=== PATIENT | female | born 1955 | race Caucasian/White ===

== ENCOUNTER 2018-10-09 00:51 | Outpatient (CLI) | payer MEDICAID, SELFPAY ==
--- NOTE | 2018-10-09 12:00 | DI.MAMMO_ITS ---
SYMPTOM/DIAGNOSIS: SCREENING Z12.31 MAMMOGRAM: Mammograms were interpreted according to the usual protocol including computer analysis with CAD system, tomosynthesis and C view imaging. Comparison with prior examinations. Breast density B. Category 1. No suspicious masses or microcalcifications are seen. There is no definite evidence of malignancy. IMPRESSION: Negative mammogram. Routine screening is recommended. Category 1- B MQSA ASSESSMENT OF FINDINGS: Negative. Category 1. Patient will receive a letter notifying them of these results. bBI-RADS category B. There are scattered areas of fibroglandular density.
== END 2018-10-09 01:11 ==
PROVIDERS: PCP Family Medicine; Visit Provider Nurse Practitioner Family
DX: Z12.31 Encounter for screening mammogram for malignant neoplasm of breast (principal)
CPT/HCPCS: 77063; 77067

== ENCOUNTER 2019-10-01 16:07 | Outpatient (REF) | payer MEDICAID, SELFPAY ==
--- NOTE | 2019-10-01 15:30 | PAPFT_PTH ---
PATIENT: Ashleigh Mendoza LOC: [facility] U#:[id number] AGE/SX: 63/F ROOM: RE10/01/[address]: JUAN Benitez : 1955 BED: DIS: 10/01/2019 SPEC #: [id number] RECD: 10/01/19 18:17 STATUS: SHERINE REQ #: [id number] ELSA: 10/01/19 15:[address]: Alexandria Stafford DEPT: [facility] Cytology RECD BY: Luci Thorne ENTERED: 10/01/19 18:17 SP TYPE: PAPFT OTHR DR: Kristen Robles V Tissues: 1 - CX/ENDOCX FOR PAP SMEARS Procedures: PAP THIN PREP/UVM Screening HPV DNA PROBE Comments: [id number]
== END 2019-10-01 16:27 ==
LOC: LBN 16:07
PROVIDERS: PCP Family Medicine; Visit Provider Nurse Practitioner Family
DX: Z12.4 Encounter for screening for malignant neoplasm of cervix (principal)
CPT/HCPCS: 88142; 87624

== ENCOUNTER 2019-11-27 07:34 | Outpatient (CLI) | payer MEDICAID, SELFPAY ==
--- NOTE | 2019-11-27 | DI.MAMMO_ITS ---
EXAM: MAMMO SCREENING CLINICAL HISTORY: SCREENING, Z12.39 TECHNIQUE: Mammograms were interpreted according to the usual protocol including computer analysis w [employer] CAD system, tomosynthesis and C-view imaging. COMPARISON: 2010 through 2018 FINDINGS: The breasts are composed of scattered fibroglandular densities, Breast Density category B. No suspicious masses or suspicious microcalcifications are seen. A biopsy marker clip is again noted in the left breast. There are stable circumscribed nodules in the anterior left breast. No skin thickening or abnormal axillary lymph nodes are seen. There has been no significant change from prior exams. IMPRESSION: BI-RADS category 2, negative with benign findings. Yearly screening mammography is recommended. Breast density category B, scattered fibroglandular densities.
== END 2019-11-27 07:54 ==
PROVIDERS: PCP Family Medicine; Visit Provider Nurse Practitioner Family
DX: Z12.31 Encounter for screening mammogram for malignant neoplasm of breast (principal)
CPT/HCPCS: 77063; 77067

== ENCOUNTER 2020-12-15 00:31 | Outpatient (CLI) | payer MEDICAID, SELFPAY ==
--- NOTE | 2020-12-15 10:30 | DI.MAMMO_ITS ---
Exam(s) MAMMO SCREENING EXAM: MAMMO SCREENING CLINICAL HISTORY: screening. TECHNIQUE: Bilateral full field digital CC and MLO mammographic images were obtained with 3D tomosyn thesis and utilizing computer aided detection (CAD). COMPARISON: Prior mammograms dating back to 2011, the most recent being November 2019. This patient unde rwent left breast biopsy in 1007, apparently negative. Her mother and maternal aunt both diagnosed b reast cancer.. FINDINGS: There are bilateral nodules again noted. However, in the anterior right breast 1 of the nodules appears of slightly increased in size, measuri ng approximately 5 x 6 millimeters on the present study and located approximately 2.5 cm in from the nipple, slightly medial of center. Anteriorly in the opposite-left breast the previously present nodule slightly increased in size, pres ently measuring 9 x 6 millimeters, approximately 4 cm in from the nipple. There are no malignant-echo earing microcalcification groups in either breast. There is no significant architectural distortion nor skin thickening-retraction. IMPRESSION: Slight increase in size of left nodule and right nodule. Spot compression views plus bilateral breas t ultrasound recommended. BI-RADS Category 0 - Assessment Incomplete: Need additional imaging evaluation Breast Density - Category B - Scattered areas of fibroglandular density Breast density Category C or D implies that the patient has dense breast tissue. Dense breast tissue can make it harder to find cancer on a mammogram. Dense breast tissue is also associated with an incr eased risk of breast cancer. This information about the result of the mammogram report was provided to the patient to raise their awareness. Use this report when you speak with the patient about their risks for breast cancer, which includes their family history. At that time, you may recommend additional screening tests (Ultrasoun d or MRI) as these tests may add significant information. A negative radiographic report should not delay biopsy if a dominant or clinically suspicious mass is present. Up to ten percent of cancers are not identified on mammography. A negative report may reinforce clinical impression. Adenosis and dense breasts may obscure an underlying neoplasm. False positive reports average 6 to 10%. Patient will receive a letter notifying them of these results.
== END 2020-12-15 00:51 ==
PROVIDERS: PCP Family Medicine; Visit Provider Nurse Practitioner Family
DX: Z12.31 Encounter for screening mammogram for malignant neoplasm of breast (principal); R92.8 Other abnormal and inconclusive findings on diagnostic imaging of breast
CPT/HCPCS: 77063; 77067

== ENCOUNTER 2020-12-19 03:31 | Outpatient (CLI) | payer MEDICAID, SELFPAY ==
--- NOTE | 2020-12-19 | DI.MAMMO_ITS ---
Exam(s) US BREAST RT LIMITED US BREAST LT LIMITED MG MAMMO SCREEN CALL BACK BI EXAM: US BREAST RT LIMITED CLINICAL HISTORY: F/U MAMMO, BREAST NODULES,SLIGHT INCREASE IN SIZE OF NODULES TECHNIQUE: Ultrasound performed using standard protocol. COMPARISON: US LEFT BREAST ULTRASOUND from 04/26/2013 US US BREAST LT LIMITED from 12/19/2020 FINDINGS: Additional mammographic views of right and left breast and bilateral breast ultrasound are interprete d in conjunction. Recent mammogram showed mild interval increase in size of bilateral retroareolar n odules. On spot compression views these appear well circumscribed. Breast ultrasound shows 7 millim eter in diameter septated cyst of the right breast in approximately the 5 o'clock position, no Dopple r abnormality. Ultrasound examination of the left breast shows a well-circumscribed simple cyst jerome uring about 8 millimeters in greatest diameter. No Doppler abnormality. No solid mass identified ultrasonographically. IMPRESSION: Small bilateral breast cysts as described above. I would suggest follow-up mammogram be obtained 12 months. BI-RADS Cat 2 - Benign Findings Breast Density - Category B - Scattered areas of fibroglandular density DATA REPOSITORY:
== END 2020-12-19 03:51 ==
PROVIDERS: PCP Family Medicine; Visit Provider Nurse Practitioner Family
DX: Z12.31 Encounter for screening mammogram for malignant neoplasm of breast (principal); R92.8 Other abnormal and inconclusive findings on diagnostic imaging of breast; N60.01 Solitary cyst of right breast; N60.02 Solitary cyst of left breast
CPT/HCPCS: 76642; 77063; 77067

== ENCOUNTER 2021-03-18 14:59 | Outpatient (REF) | payer MEDICAID, SELFPAY ==
[2021-03-18 14:47] LABS: ALT 30 U/L (14-59); AST 20 U/L (15-37); Albumin 4.1 g/dL (3.4-5.0); Alkaline Phosphatase 95 U/L (46-116); Anion Gap 9.2 mmol/L (3-11); BUN 16 mg/dL (7-18); Bilirubin, Total 0.3 mg/dL (0.2-1.0); CO2 26.8 mmol/L (21.0-32.0); CREATININE 0.9 mg/dL (0.55-1.02); Calcium 10.6 mg/dL (8.5-10.1); Calculated LDL 112 mg/dL (<100); Chloride 105 mmol/L (98-107); Cholesterol 186 mg/dL (<200); Glucose 114 mg/dL (74-106); HDL Cholesterol 36 mg/dL (40-60); Potassium 4.8 mmol/L (3.5-5.1); Sodium 141 mmol/L (136-145); Total Protein 7.3 g/dL (6.4-8.2); Triglyceride 190 mg/dL (<150)
== END 2021-03-18 15:00 | disposition home or self-care (01) ==
LOC: NCHCN 14:59
PROVIDERS: PCP Family Medicine; Visit Provider Family Medicine
DX: E78.5 Hyperlipidemia, unspecified (principal); Z00.00 Encounter for general adult medical examination without abnormal findings
CPT/HCPCS: 80053; 80061

== ENCOUNTER 2021-03-26 15:23 | Outpatient (REF) | payer MEDICAID, SELFPAY ==
[2021-03-26 19:38] LABS: TSH (W/Ref FT4) 0.67 uIU/mL (0.36-3.74)
[2021-03-30 10:36] LABS: Parathyroid Hormone,Intact 118 pg/mL (19-88)
== END 2021-03-26 15:24 | disposition home or self-care (01) ==
LOC: NCHCN 15:23
PROVIDERS: PCP Family Medicine; Visit Provider Family Medicine
DX: Z00.00 Encounter for general adult medical examination without abnormal findings (principal)
CPT/HCPCS: 83036; 83970; 84443

== ENCOUNTER 2021-04-07 01:18 | Outpatient (CLI) | payer MEDICAID, SELFPAY ==
[2021-04-09 00:55] LABS: Vitamin D 25 Total 24.3 ng/mL (30-100)
== END 2021-04-07 01:19 | disposition home or self-care (01) ==
LOC: LBO 01:19
PROVIDERS: PCP Family Medicine; Visit Provider Family Medicine
DX: E83.52 Hypercalcemia (principal); E21.3 Hyperparathyroidism, unspecified
CPT/HCPCS: 36415; 82306

== ENCOUNTER 2021-04-10 19:26 | Outpatient (REF) | payer MEDICAID, SELFPAY ==
[2021-04-13 09:03] LABS: Calcium Urine 15.8 mg/dL (See Note); Calcium Urine 24 hr 332 mg/24hrs (100-300); Timed Urine Volume 2100 mL
== END 2021-04-10 19:27 | disposition home or self-care (01) ==
LOC: NCHCN 19:26
PROVIDERS: PCP Family Medicine; Visit Provider Family Medicine
DX: E83.52 Hypercalcemia (principal); E21.3 Hyperparathyroidism, unspecified
CPT/HCPCS: 81050; 82340

== ENCOUNTER 2021-09-10 12:15 | Outpatient (REF) | payer MEDICAID, SELFPAY ==
--- NOTE | 2021-09-10 10:00 | SKI_PTH ---
PATIENT: Ashleigh Mendoza LOC: [facility] U#:[id number] AGE/SX: 65/F ROOM: RE09/10/[address]: Kristen Robles V : 1955 BED: DIS: 09/10/2021 SPEC #: [id number] RECD: 09/10/21 12:43 STATUS: SHERINE BLAIR #: [id number] ELSA: 09/10/21 10:[address]: Kristen Robles V DEPT: Surgical Specimen RECD BY: Luci Thorne Tissues: 1 - SKIN BIOPSY(SHAVE/PUNCH) Procedures: SKIN LEVEL 4 Comments: [id number]
== END 2021-09-10 12:16 | disposition home or self-care (01) ==
LOC: NCHCN 12:15
PROVIDERS: PCP Family Medicine; Visit Provider Family Medicine
DX: L82.1 Other seborrheic keratosis (principal)
CPT/HCPCS: 88305

== ENCOUNTER 2021-10-28 00:24 | Outpatient (CLI) | payer MEDICAID, SELFPAY ==
--- NOTE | 2021-10-28 10:53 | DI.MAMMO_ITS ---
Exam(s) MAMMO DIAGNOSTIC BI EXAM: MAMMO DIAGNOSTIC BI CLINICAL HISTORY: DIAGNOSTIC, BREAST LESION, N64.9, FAMILY HX BREAST CA, NEW SCALE LIKE AREA. TECHNIQUE: Bilateral CC and MLO views were. Also performed right side unilateral spot mammographic images were obtained with 3D tomosynthesis technique and utilizing computer aided detection (CAD). COMPARISON: Prior mammograms were reviewed, the most recent being November 2020.. This is a diagnostic study. Apparently this patient has new skin findings in the right breast periar eolar region. Denies obvious nipple discharge. FINDINGS: In the left breast there is a benign-appearing nodule which is unchanged from prior mammograms. Ther e also appears to be a biopsy marker clip in the left breast with no new findings in this region. In the right breast there is a new small asymmetric density-nodule located anteriorly, approximately 3 cm in from the nipple, this measuring 3 x 2 millimeters. This was not evident on prior mammograms. It persists on spot compression CC view. Another slightly larger nodular density in the right loco st is unchanged from prior studies. There are no new malignant-appearing microcalcification groups in either breast. No new architectura l distortion or skin thickening-traction. IMPRESSION: 1. No radiographic evidence of malignancy in left breast. Stable benign-appearing left breast findin gs. 2. Small new asymmetric density-possible nodule in the right breast as described above. This persist s on spot compression view. Ultrasound recommended. Ultrasound is also recommended given her new cl inical findings in the right breast. Apparently there are no slots available for this add on ultrasound examination today. Patient will b e scheduled prior to leaving our department. Final report will be dictated once the ultrasound has been performed. The patient was informed of the findings and follow-up recommendations prior to leaving the departmen t today. BI-RADS Category 0 - Assessment Incomplete: Need additional imaging evaluation Breast Density - Category B - Scattered areas of fibroglandular density Breast density Category C or D implies that the patient has dense breast tissue. Dense breast tissue can make it harder to find cancer on a mammogram. Dense breast tissue is also associated with an incr eased risk of breast cancer. This information about the result of the mammogram report was provided to the patient to raise their awareness. Use this report when you speak with the patient about their risks for breast cancer, which includes their family history. At that time, you may recommend additional screening tests (Ultrasoun d or MRI) as these tests may add significant information. A negative radiographic report should not delay biopsy if a dominant or clinically suspicious mass is present. Up to ten percent of cancers are not identified on mammography. A negative report may reinforce clinical impression. Adenosis and dense breasts may obscure an underlying neoplasm. False positive reports average 6 to 10%. Patient will receive a letter notifying them of these results.
== END 2021-10-28 00:44 ==
PROVIDERS: PCP Family Medicine; Visit Provider Nurse Practitioner Family
DX: N64.89 Other specified disorders of breast (principal); Z80.3 Family history of malignant neoplasm of breast; N60.82 Other benign mammary dysplasias of left breast; N63.15 Unspecified lump in the right breast, overlapping quadrants; R92.8 Other abnormal and inconclusive findings on diagnostic imaging of breast
CPT/HCPCS: 77062; 77066; G0279

== ENCOUNTER → 2021-10-29 00:32 | Outpatient (CLI) | payer MEDICAID, SELFPAY ==
--- NOTE | 2021-10-29 | DI.US_ITS ---
Exam(s) US BREAST RT LIMITED EXAM: US BREAST RT LIMITED CLINICAL HISTORY: F/U MAMMO,R93.8 TECHNIQUE: Ultrasound right breast performed using standard protocol. COMPARISON: US US BREAST RT LIMITED from 12/19/2020 MG MG MAMMO DIAGNOSTIC BI from 10/28/2021 FINDINGS: The retroareolar region of the right breast was evaluated sonographically. There are few tiny cysts seen in the right breast. There is a cluster at 4 o'clock 1 cm from the nipple measuring in aggregat e 0.4 cm. There are few small cysts seen at the 12 o'clock position of the right breast 2 cm from th e nipple measuring 0.2 cm. No suspicious solid masses are seen. IMPRESSION: 1. No sonographically suspicious finding. 2. Findings were discussed with the patient on the date of the examination. 3. A six-month follow-up right mammogram is recommended for re-evaluation. BI-RADS Category 3 - 6 month - Probably Benign Finding: Recommend follow-up imaging in 6 months DATA REPOSITORY:
== END ==
PROVIDERS: PCP Family Medicine; Visit Provider Nurse Practitioner Family
DX: R92.8 Other abnormal and inconclusive findings on diagnostic imaging of breast (principal); N60.11 Diffuse cystic mastopathy of right breast
CPT/HCPCS: 76642

== ENCOUNTER 2021-11-17 12:21 | Outpatient (REF) | payer MEDICAID, SELFPAY ==
--- NOTE | 2021-11-17 11:42 | SKI_PTH ---
PATIENT: Ashleigh Mendoza LOC: [facility] U#:[id number] AGE/SX: 65/F ROOM: RE11/17/[address]: Kaylah Boone MD : 1955 BED: DIS: 11/17/2021 SPEC #: [id number] RECD: 11/17/21 12:58 STATUS: SHERINE BLAIR #: [id number] ELSA: 11/17/21 11:[address]: Kaylah Boone DEPT: Surgical Specimen RECD BY: Luci Thorne ENTERED: 11/17/21 12:59 SP TYPE: CARROL THEODORE DR: Kristen Robles V Tissues: 1 - SKIN BIOPSY(SHAVE/PUNCH) Procedures: SKIN LEVEL 4 SPECIAL STAIN 1 Comments: [id number]
== END 2021-11-17 12:22 | disposition home or self-care (01) ==
LOC: LBN 12:21
PROVIDERS: PCP Family Medicine; Visit Provider Surgery
DX: R21 Rash and other nonspecific skin eruption (principal); L98.8 Other specified disorders of the skin and subcutaneous tissue
CPT/HCPCS: 88305; 88312

== ENCOUNTER 2021-12-14 08:47 | Outpatient (REF) | payer MEDICAID, SELFPAY ==
--- NOTE | 2021-12-14 08:30 | PAPFT_PTH ---
PATIENT: Ashleigh Mendoza LOC: [facility] U#:[id number] AGE/SX: 66/F ROOM: RE12/14/[address]: JUAN Benitez : 1955 BED: DIS: 12/14/2021 SPEC #: [id number] RECD: 12/14/21 12:59 STATUS: SHERINE REQ #: [id number] ELSA: 12/14/21 08:[address]: Alexandria Stafford [facility] Cytology RECD BY: Luci Thorne ENTERED: 12/14/21 12:59 SP TYPE: PAPFT OTHR DR: Kristen Robles V Tissues: 1 - CX/ENDOCX FOR PAP SMEARS Procedures: PAP THIN PREP/UVM Screening HPV DNA PROBE Comments: [id number]
== END 2021-12-14 08:48 | disposition home or self-care (01) ==
LOC: LBN 08:47
PROVIDERS: PCP Family Medicine; Visit Provider Nurse Practitioner Family
DX: Z12.4 Encounter for screening for malignant neoplasm of cervix (principal)
CPT/HCPCS: 88142; 87624

== ENCOUNTER → 2021-12-25 | Outpatient (CLI) | payer MEDICAID, SELFPAY ==
--- NOTE | 2021-12-25 | DI.DEXA_ITS ---
Exam(s) XR DEXA BONE DENSITY W/WO RUT EXAM: XR DEXA BONE DENSITY W/WO RUT CLINICAL HISTORY: POST MENOPAUSAL Z78.0, SCREENING TECHNIQUE: COMPARISON: Comparison examination is 07/06/2016. FINDINGS: Lateral Spine Image: Unremarkable. No compression deformities identified. Left hip: Total T-Score: -0.1. This compares to 0.8 on the prior examination. This is a decrease in the bone m ineral density. Total Z-Score: 1.1 T- and Z-scores: Within normal limits. Lumbar Spine: Total T-Score: -0.7. This compares to 0.4 on the prior examination. This is a decrease in the bone m ineral density. Total Z-Score: 1.0 T- and Z-scores: Within normal limits. IMPRESSION: No evidence of osteoporosis.
== END ==
PROVIDERS: PCP Family Medicine; Visit Provider Family Medicine
DX: M85.88 Other specified disorders of bone density and structure, other site (principal); Z78.0 Asymptomatic menopausal state
CPT/HCPCS: 77080

== ENCOUNTER → 2021-12-29 00:25 | Outpatient (CLI) | payer MEDICAID, SELFPAY ==
--- NOTE | 2021-12-29 | DI.CTLCSR_ITS ---
Exam(s) CT CHEST LUNG CANCER SCREEN EXAM: CT CHEST LUNG CANCER SCREEN CLINICAL HISTORY: SMOKER, F17.210, LUNG CANCER SCREENING TECHNIQUE: Imaging Protocol: Axial computed tomography images with coronal and sagittal reformatted images were created and reviewed COMPARISON: No exams were available for comparison FINDINGS: Tracheobronchial tree: Patent where visualized. Mediastinum and Calista: No dominant adenopathy or fluid collection. Pulmonary parenchyma: No consolidation or dominant measurable mass. Moderate centrilobular emphysema . Lung Nodules: A few tiny scattered bilateral pulmonary nodules peripherally, measuring 3 millimeters or less in size. Pleura: No effusion or pneumothorax. Heart: The heart is not dilated. Moderate to severe coronary artery calcifications are seen. Aorta: Thoracic aorta non-dilated.Mild calcification. Upper abdomen: Unremarkable. Bones: Mild degenerative changes in the spine. Soft Tissues: Unremarkable. IMPRESSION: No suspicious pulmonary nodules Category Lung RADS Cat 2 - Benign Appearance / Behavior: Nodules with a very low likelihood of becomi ng a clinically active cancer due to size or lack of growth Lung-RADS 1.0 CATEGORIES: Category 0 - Prior chest CT exam(s) being located for comparison. Category 1 - Annual screening in 12 months. No nodules or definitely benign nodules. Category 2 - Annual screening in 12 months. Benign appearance. Nodules with low likelihood of becomin g active cancer. Category 3 - 6-month follow-up. Probably benign. Short-term follow-up suggested. Nodules with low lik elihood of becoming active cancer. Category 4A - 3-month follow-up and CT/PET if >8 mm in size. Suspicious finding. Findings which requi re additional testing. Category 4B - Findings which require additional testing and tissue sampling. Category 4X - Category 3 or 4 nodules with additional features or imaging findings that increases the suspicion of malignancy. Modifier S- Potentially clinically significant findings (non lung cancer) RADIATION DOSE DELIVERED: 78.01mGy.cm Total DLP 1.84mGy CTDIvol DATA REPOSITORY: All CT scans at this facility are submitted to the National Radiology Data Registry (NRDR) Dose Index Registry (DIR) with the [employer] (A[employer]). RADIATION OPTIMIZATION: All CT scans at this facility use at least one of these dose optimization te chniques: automated exposure control; mA and/or kV adjustment per patient size (includes targeted exa ms where dose is matched to clinical indication); or iterative reconstruction.
== END ==
PROVIDERS: PCP Family Medicine; Visit Provider Family Medicine
DX: F17.210 Nicotine dependence, cigarettes, uncomplicated (principal); Z12.2 Encounter for screening for malignant neoplasm of respiratory organs
CPT/HCPCS: 71271

== ENCOUNTER → 2022-01-21 01:19 | Outpatient (CLI) | payer MEDICAID, SELFPAY ==
--- NOTE | 2022-01-21 09:15 | DI.NM_ITS ---
APPROVED REPORT Exam: Exercise Treadmill Patient Location: Out-Patient Room/Bed: Stress Nurse: Asuncion Galeano RN Ordering Provider:MARGARET PEREZ, Contact Number: [phone] BMI: 28.66 Baseline Rhythm: Sinus Rhythm Indications: Chest pain. Current smoker. Family hx of CAD. CAD. Medical History Medical History: HTN. HLD. Current smoker. Hypercalcemia. Hyperparathyroidism. Thyroid nodules. Moder ate to severe coronary artery calcium. Cardiac Medications: Metoprolol Succinate. Gabapentin. Aspirin. Nitroglcerin. Rosuvastatin. Allergies: Amlodipine.Carosoprodol. Losartan. Simvastatin. Hydromorphone. Bupropion. Codeine w/ tylen ol. Cardiac Risk Factors: Family hx. CVD. HTN. Current smoker. HLD. Previous Cardiac Procedures: none Pretest Chest Pain Characteristics: None. Exercise History: Sedentary Physical Disabilities: None Lung Sounds: Clear to auscultation Heart Sounds: Regular Stress Test Details Test: Exercise stress testing was performed using a Karson protocol. Nuclear Acquisition: Rest Tc-99m/Stress Tc-99m 1 day Rest Isotope: Tc-99m Sestamibi. Dose: 10 Date: 01/21/2022 Injection Time: 0930 Stress Isotope: Tc-99m Sestamibi. Dose: 30.2 Date: 01/21/2022 Injection Time: 1132 HR Resting HR Supine: 83 bpm Max Heart Rate (APMHR): 156.557787 bpm Resting HR Standin bpm Target HR (85% APMHR): 132.264356 bpm Max HR Achieved: 150 bpm % of APMHR: 96.15 Recovery HR: 95 bpm HR response to stress: Normal HR response to stress Comment: Metoprolol succinate held for 3 doses. BP Resting BP Supine: 124/80 mmHg Resting BP Standin/80 mmHg Max BP: 190/66 mmHg Recovery BP: 150/74 mmHg BP response to stress: Normal blood pressure response to stress. ECG Resting ECG: Sinus Rhythm Ectopy: none Stress ECG: Sinus Tachycardia ST Change: Upsloping ST depression, Horizontal ST depression Lead(s): II, III, aVF Stage: [address] Deviation: 1 mm Arrhythmia: VPC's Recovery ECG: Sinus Rhythm Recovery ST Change: No significant ST segment changes noted Recovery Arrhythmia: VPC Comment: ST depressions resolved by 1 minute recovery. Clinical Reason for Termination: Fatigue, Dyspnea Stress Symptoms: Dyspnea, General Fatigue Exercise duration: 6 min43 sec Highest Stage Reached: Stage 3: 3.4 mph at 14% grade. Exercise capacity: 8.15 METs Scale: Sedentary Angina Score: None Myles Treadmill Score: 1.0 Rate Pressure Product: 14503 Stress ECG Conclusion 1. Resting electrocardiogram was within normal limits 2. Patient exercised on a Karson protocol and completed a workload of 8.15 METS 3. Normal heart rate and blood pressure response to exercise. Patient achieved 96% of predicted hear t rate for age 4. There was no electrocardiographic evidence of myocardial ischemia with exercise 5. There were no significant dysrhythmias Myles Treadmill Score is 1.0 which is Moderate risk. Stress Test Summary STAGE Time (mins) Speed (mph) Grade (%) HR BP SYMPTOMS METS Supine 83 124/80 Standing 94 136/80 1 3 1.7 10 117 152/72 SP02 93% 4.6 2 6 2.5 12 136 176/80 7 3 9 3.4 14 148 moderate dyspnea 10.2 1 min recovery 136 182/76 SP02 94% Dyspnea subsided 3 min recovery 103 190/66 6 min recovery 95 150/74 MPI Conclusion Myocardial perfusion is normal, no ischemia or evidence of prior infarction EF 61%, normal wall motion Radiologist Interpretation Radiologist Interpretation by: Lloyd Becerril MD Interpretation Date/Time: 01/21/2022 16:10:04
== END ==
PROVIDERS: PCP Family Medicine; Visit Provider Family Medicine
DX: R07.89 Other chest pain (principal)
CPT/HCPCS: 78452; 93017

== ENCOUNTER → 2022-02-08 00:35 | Outpatient (CLI) | payer MEDICAID, SELFPAY ==
--- NOTE | 2022-02-08 | DI.US_ITS ---
Exam(s) US THYROID EXAM: US THYROID CLINICAL HISTORY: MULTIPLE THYROID NODULES,E04.2,PARATHYROID ADENOMA,RT/LT LOWER POLE NODULES. TECHNIQUE: Ultrasound thyroid performed using standard protocol. COMPARISON: No exams were available for comparison FINDINGS: ISTHMUS: 4 mm RIGHT LOBE: Size: 5.9 x 1.6 x 1.8 cm Echogenicity: Normal. Vascularity: Normal. Nodules: #1 lower pole, solid, hypoechoic nodule with coarse macro calcifications measuring 1.5 x 1.0 x 1.5 cm, ill-defined borders, TR 4 #2: Lower pole, 1.3 x 0.9 x 1.1 centimeter solid hypoechoic nodule with ill-defined borders and coars e calcification, TR 4. LEFT LOBE: Size: 5.9 x 3.8 x 1.8 cm Echogenicity: Normal. Vascularity: Normal. Nodules: #3: Upper pole left lobe: 1.5 x 1.7 x 1.5 centimeter solid isoechoic nodule, taller than wid e, smoothly marginated no echogenic foci, TR 4. #4: Lower pole left lobe: 1.4 x 1.7 x 1.7 cm solid isoechoic nodule smooth margins no echogenic foci, TR 3 OTHER FINDINGS: No enlarged lymph nodes identified IMPRESSION: Bilateral thyroid nodules as above. DATA REPOSITORY:
== END ==
PROVIDERS: PCP Family Medicine; Visit Provider Nurse Practitioner Family
DX: E04.2 Nontoxic multinodular goiter (principal); D35.1 Benign neoplasm of parathyroid gland
CPT/HCPCS: 76536

== ENCOUNTER 2022-04-16 01:04 | Outpatient (CLI) | payer MEDICAID, SELFPAY ==
[2022-04-16 14:20] LABS: FREE T4 0.98 ng/dL (0.76-1.46); TSH 1.33 uIU/mL (0.36-3.74)
[2022-04-19 13:06] LABS: Parathyroid Hormone,Intact 105 pg/mL (19-88)
== END 2022-04-16 01:05 | disposition home or self-care (01) ==
LOC: LBO 01:04
PROVIDERS: PCP Family Medicine; Visit Provider Otolaryngology
DX: E04.1 Nontoxic single thyroid nodule (principal)
CPT/HCPCS: 36415; 82310; 83970; 84439; 84443

== ENCOUNTER 2022-04-30 01:32 | Outpatient (CLI) | payer MEDICAID, SELFPAY ==
[2022-04-30 08:16] LABS: ALT 34 U/L (14-59); AST 18 U/L (15-37); Alkaline Phosphatase 97 U/L (46-116); Anion Gap 4.9 mmol/L (3-11); BUN 17 mg/dL (7-18); Bilirubin, Total 0.3 mg/dL (0.2-1.0); CO2 30.1 mmol/L (21.0-32.0); CREATININE 0.9 mg/dL (0.55-1.02); Calcium 10.5 mg/dL (8.5-10.1); Calculated LDL 106 mg/dL (<100); Chloride 105 mmol/L (98-107); Cholesterol 191 mg/dL (<200); Estimated GFR 71.39 (mL/min/1.73m2); Glucose 125 mg/dL (74-106); HDL Cholesterol 38 mg/dL (40-60); Potassium 4.4 mmol/L (3.5-5.1); Sodium 140 mmol/L (136-145); TSH (W/Ref FT4) 1.11 uIU/mL (0.36-3.74); Total Protein 7.5 g/dL (6.4-8.2); Triglyceride 236 mg/dL (<150)
[2022-04-30 09:53] LABS: Hemoglobin A1C 6.1 % (<5.7)
== END 2022-04-30 01:33 | disposition home or self-care (01) ==
PROVIDERS: PCP Family Medicine; Visit Provider Family Medicine
DX: I10 Essential (primary) hypertension (principal); E04.2 Nontoxic multinodular goiter; R73.09 Other abnormal glucose; E78.5 Hyperlipidemia, unspecified; I25.10 Atherosclerotic heart disease of native coronary artery without angina pectoris; N64.89 Other specified disorders of breast
CPT/HCPCS: 36415; 80053; 80061; 83036; 84443

== ENCOUNTER → 2022-05-13 01:37 | Outpatient (CLI) | payer MEDICAID, SELFPAY ==
--- NOTE | 2022-05-13 09:30 | DI.MAMMO_ITS ---
Exam(s) MAMMO DIAGNOSTIC UNI EXAM: MAMMO DIAGNOSTIC UNI CLINICAL HISTORY: BREAST LESION, N64.9, 6-MO F/U TECHNIQUE: Mammograms were interpreted according to the usual protocol including computer analysis w ith CAD system, tomosynthesis and C-view imaging. COMPARISON: FINDINGS: The breasts are of moderate density with fairly symmetrical distribution of fibroglandular tissue. N o dominant mass or clumped microcalcification seen. Examination is compared with prior examination o f October 2021, a left breast upper outer quadrant nodule seen on prior examination is smaller on today 's examination. No other suspicious change. IMPRESSION: No specific evidence of malignancy at this time. Follow-up mammogram suggested in 12 months to re-ev aluate left breast nodule. BI-RADS Category 2 - Benign Findings Breast Density - Category B - Scattered areas of fibroglandular density
== END ==
PROVIDERS: PCP Family Medicine; Visit Provider Nurse Practitioner Family
DX: N63.21 Unspecified lump in the left breast, upper outer quadrant (principal)
CPT/HCPCS: 77061; 77065; G0279

== ENCOUNTER 2022-05-14 14:27 | Outpatient (REF) | payer MEDICAID, SELFPAY ==
[2022-05-16 10:23] LABS: COVID-19 RT-PCR UVMMC Result Negative (Negative)
== END 2022-05-14 14:28 | disposition home or self-care (01) ==
LOC: NCHCN 14:27
PROVIDERS: PCP Family Medicine; Visit Provider Physician Assistant Medical
DX: Z20.822 Contact with and (suspected) exposure to COVID-19 (principal)
CPT/HCPCS: U0003

== ENCOUNTER 2022-11-22 06:58 | Day surgery (SDC) | payer MEDICARE, MEDICAID, SELFPAY ==
--- NOTE | 2022-11-21 20:28 | PDOC.DSDIS_ITS ---
Date of service: 11/22/22 Time of Service: 09:04 Discharge Plan Disposition Patient Disposition: Home Condition: Good Discharge Details Reason For Visit: Screening colonoscopy Attending Provider: Serge Becerril Primary Care Provider: Kristen Robles V Home Meds and New Rx's Prescriptions: Continued ibuprofen 800 MG tablet 800 mg PO PRN aspirin [Aspir-81] 81 MG tablet,delayed release (DR/EC) 81 mg PO DAILY nitroglycerin 0.4 MG tablet, sublingual 0.4 mg Sublingual PRN rosuvastatin 10 mg tablet 10 mg PO DAILY cholecalciferol (vitamin D3) 50 mcg (2,000 unit) capsule 50 mcg PO DAILY gabapentin 100 mg capsule 200 mg PO BID metoprolol succinate 25 mg tablet extended release 24 hr 50 mg PO DAILY triamcinolone acetonide 0.1 % cream 1 applic topical BID Discontinued polyethylene glycol 3350 17 gram/dose powder 238 g PO ONCE Qty: 238 0RF Rx Instructions: take per colonoscopy instructions bisacodyl [Dulcolax (bisacodyl)] 5 mg tablet,delayed release (DR/EC) 5 mg PO ONCE Qty: 4 0RF Rx Instructions: take per colonoscopy instructions Discharge Instructions Additional Instructions: Ashleigh, we were able to complete your colonoscopy today without any difficulty. I did find 3 polyps. One was in the cecum, and one was in the ascending colon, which is over on your right side. I found another polyp at 15 cm from your anus. This is right at the connection between your rectum and your sigmoid colon. Believe that I removed all of these polyps completely. The polyp that i s at 15 cm was fairly large. As soon as I have the pathology results, I will be in touch. 1. If tolerated, consume a soft, low fiber diet for 1-2 days. 2[address] Do not drive, drink alcohol, operate machinery, make critical decisions, or do activities that require coordination or balance for 24 hours. 3. Because air was put into your colon during the procedure, expelling air from your rectum (passing gas or farting) is normal. 4. You may not have a bowel movement for 1-3 days because of the colonoscopy prep. This is normal. 5. Go directly to the emergency room if you notice any of the following: Develop chills (warm to touch), or if you have a thermometer and your temperature is above 101 Difficulty breathing or difficultly swallowing Persistent vomiting Severe abdominal pain, other than gas cramps Severe chest pain Black, tarry stools Any bleeding ? exceeding one tablespoon 6. Call your physician if the site where your intravenous was started becomes red, swollen, painful, and warm to touch. 7. Your physician has reviewed your pre-procedure medications. Please continue to take those medications as previously ordered. You will be given specific information/education regarding any changes to your medications before leaving. Activity:: Activity as Tolerated Diet:: As Tolerated Discharge Orders Discharge Orders: Discharge Order (Routine); Ordered 11/21/22 Ordered By: Serge Becerril DS: Diagnosis Discharge Diagnosis (1) Screening for colon cancer: Status: Acute Asessment and Plan: Follow-up on polypectomy pathology results
--- NOTE | 2022-11-21 20:30 | W.COLOREPORT ---
Date of service: 11/22/22 Time of Service: 09:05 Colonoscopy Report Date of procedure: 11/22/22 Pre-op diagnosis general: Screening colonoscopy Post-op diagnosis procedure note: other (Colorectal polyps) Procedure: Colonoscopy polypectomy Surgeon: Serge Becerril Anesthesia Type: General:No Airway Estimated blood loss (mL): 10 Pathology: other (Cecal polyp, polyp from 90 cm (in the ascending colon) polyp at 15 cm) Complications: None Disposition: same day Indications: corky is a 66 year old woman with a history of sessile serrated adenoma who is here for her next screening colonoscopy Prep: Miralax/Dulcolax Procedure Start Time: 08:28 Procedure End Time: 08:50 Retraction Time: 16 Findings: Polyps in the cecum, and ascending colon. The ascending colon polyp is around 90 cm. Polyp at 15 cm from the anal verge, uppermost portion of the rectum Procedure Description: After the induction of monitored anesthetic care, and with the patient in left lateral decubitus position, I began by performing an external anorectal exam.? Perineum and skin were normal, as was the anal verge.? There were some fibrosed external skin tags consistent with old hemorrhoids.? Next, I performed a digital rectal exam.? I did not appreciate any abnormal findings.? Next, I advanced a colonoscope into the rectal vault.? I performed retroflexion.? I this appeared normal.? Using insufflation, I then advanced the colonoscope beyond the rectal folds and into the sigmoid colon before advancing towards the cecum.? The quality of the prep was excellent.? The scope was noted to be in the cecum by identification of the ileocecal valve and appendiceal orifice.? There was a 0.5 cm pedunculated polyp in the cecum. I removed this with cold snare polypectomy. There was minimal bleeding. Similarly, there was a 0.5 cm polyp in the ascending colon, that is approximately 90 cm from the anal verge. I also removed this with cold forcep polypectomy. Both of these polyps were slightly pedunculated. I then began withdrawing the colonoscope using repeated irrigation as necessary for full evaluation of the colonic mucosa. I saw 1 singular colonic diverticula around 35 cm. Around 15 cm from the anal verge, right at the uppermost rectal fold, I found another polyp. This was larger. I would estimated about 1 to 1.25 cm. It was mildly inflamed. I removed this with a cold snare as well. Once the scope was withdrawn to the level of the rectum, great care was taken to examine portions of the rectal folds.? Finally, the scope was withdrawn and the patient was brought to the same-day surgery recovery unit as the anesthetic wore off. ?The findings and instructions were shared with the patient prior to discharge.
[2022-11-22 07:09] VITALS: BP 117/71; PULSE 85; RESP 17; TEMP 36.3; O2SAT 100
[2022-11-22] MEDS: Lactated Ringers 1,000 ML 80 ML IV (07:31)
--- NOTE | 2022-11-22 08:15 | ANES.PREOP_ITS ---
General Info Date of Service Date Performed: 11/22/22 Height: 5 ft 3.5 in Weight: 73.2 kg Body Mass Index (BMI): 28.1 Surgical Procedure: Operation Date: 11/22/22 08:05 Proposed Procedure Side Surgeon reanna Becerril MD Meds Allergies and Home Medications Allergies Allergy/AdvReac Type Severity Reaction Status Date / Time amlodipine Allergy Unknown Other (See Verified 11/22/22 07:20 Comment) carisoprodol [From Soma] Allergy Unknown Other (See Verified 11/22/22 07:20 Comment) losartan Allergy Unknown Other (See Verified 11/22/22 07:20 Comment) methylprednisolone Allergy Unknown Verified 11/22/22 07:20 [From Depo-Medrol] simvastatin Allergy Unknown Other (See Verified 11/22/22 07:20 Comment) hydromorphone AdvReac Intermediate vomiting Verified 11/22/22 07:20 and spinning bupropion [From Wellbutrin] AdvReac Mild just Verified 11/22/22 07:20 didn't feel good codeine AdvReac severe Verified 11/22/22 07:20 headache Home Medication Medication Instructions Recorded aspirin 81 mg tablet,delayed 81 mg PO DAILY 10/01/13 release (Aspir-) ibuprofen 800 mg tablet 800 mg PO PRN 10/01/13 nitroglycerin 0.4 mg sublingual 0.4 mg sublingual PRN 10/01/13 tablet cholecalciferol (vitamin D3) 50 50 mcg PO DAILY 11/05/21 mcg (2,000 unit) capsule gabapentin 100 mg capsule 200 mg PO BID 11/05/21 metoprolol succinate 25 mg 50 mg PO DAILY 11/05/21 tablet,extended release 24 hr rosuvastatin 10 mg tablet 10 mg PO DAILY 11/05/21 triamcinolone acetonide 0.1 % 1 applic topical BID 05/25/22 topical cream Current Visit Medications: Current Medications Generic Name Dose Route Start Last Admin Trade Name Freq PRN Reason Stop Dose Admin Hyoscyamine Sulfate 0.125 mg 11/21/22 20:31 Hyoscyamine 0.125 Mg Sl/Oral/Chew SL DIRECTED PRN Ringer's Solution 1,000 mls @ 80 mls/hr 11/22/22 06:00 11/22/22 07:31 IV 11/22/22 23:59 80 mls/hr INFUSION MIRELLA Administration IV Miscellaneous Supplies 1 each 11/22/22 06:00 Iv Access IV 11/22/22 23:59 DIRECTED MIRELLA Ondansetron HCl 4 mg 11/21/22 20:31 Ondansetron 4 Mg/2 Ml Vial IVP Q4H PRN PRN Nausea / Vomiting Sodium Chloride 0 ml 11/22/22 06:00 Normal Saline Flush 10 Ml Syr IV 11/22/22 23:59 PRN PRN Sodium Chloride 0 ml 11/22/22 06:00 Normal Saline 10 Ml Vial IJ 11/22/22 23:59 DIRECTED PRN Sterile Water 0 ml 11/22/22 06:00 Water,Injection,Sterile 10 Ml Vial IJ 11/22/22 23:59 DIRECTED PRN PFSH Active Problems Active Problems: Problem Status Onset Code Thyroid nodule E04.1 Screening for colon cancer Z12.11 Eczema L30.9 Skin lesion L98.9 Breast Symptom N64.59 CAD (coronary artery disease) I25.10 Chest pain of uncertain etiology R07.9 Abnormal mammogram of right breast R92.8 Breast lesion N64.9 Family history of breast cancer 09/16/17 Z80.3 Medical History Medical History Accidental fall Bilateral carpal tunnel syndrome Depression Elevated lipids (09/16/17) Family history of premature coronary heart disease History of abnormal cervical Pap smear History of colonic polyps Hypercalcemia Hyperparathyroidism Hypertension (09/16/17) Iliotibial band syndrome of right side Left shoulder pain Myalgia Neck stiffness Radicular syndrome of lower limbs Seborrheic keratosis Smoker Squamous papilloma of uvula Warthin's tumor Surgical History Surgical History Abdominal hysterectomy 2007 Dr Huerta - menorrhagia and fibroids Acquired absence of both cervix and uterus (09/16/17) TA Hyst for Bleeding and Fibroids - Dr Huerta 2006 Cervical Conization/LEEP Tobacco Smoking/Tobacco Use Status: Current every day Tobacco Type: cigarettes Smoking packs per day: 1.5 Alcohol Alcohol Intake: former Substance Use Substance use: Never Substance use type: does not use Prental History History 4 Para 4 Hx # Term Pregnancies Multiple births Hx # Pregnancies Ectopic pregnancies AB induced Hx Number of Living Children AB spontaneous Vital Signs and Lab Results Vital Signs Most Recent Vital Signs in EMR: Most Recent Vital Signs Temp Pulse Resp BP Pulse Ox 36.3 C L 85 17 117/71 100 11/22/22 07:09 11/22/22 07:09 11/22/22 07:09 11/22/22 07:09 11/22/22 07:09 Lab Results Blood Type / Crossmatch: No Data to Display Complete Blood Count: No Data to Display Complete Metabolic Panel: No Data to Display Liver Function Panel: 2 No Data to Display Coagulation Panel: No Data to Display Cardiac Panel: No Data to Display Arterial Blood Gas: No Data to Display Venous Blood Gas: No Data to Display Pancreas Panel: No Data to Display Thyroid Panel: No Data to Display Infectious Disease: No Data to Display Blood Cultures: No Data to Display Toxicology Panel: No Data to Display Imaging and Studies Imaging and Studies Study information below may be from another EMR and interpreted by another provider. Please see original notes in EMR for more complete details. Stress Test Summary: ent Name: Ashleigh Mendoza Kerline #: [id number]: DI Ordering Provider: Kritsen Robles M.D. : REG I Primary Care Provider: Kristen Robles M.D.Date of Exam: 01/21/22Sex: F Admission Date: 01/21/22 : 1955 Age: 66 APPROVED REPORT Exam: Exercise Treadmill Patient Location: Out-Patient Room/Bed: Stress Nurse: Asuncion Galeano RN Ordering Provider:KRISTEN ROBLES, Contact Number: [phone] BMI: 28.66 Baseline Rhythm: Sinus Rhythm Indications: Chest pain. Current smoker. Family hx of CAD. CAD. Medical History Medical History: HTN. HLD. Current smoker. Hypercalcemia. Hyperparathyroidism. Thyroid nodules. Moderate to severe coronary artery calcium. Cardiac Medications: Metoprolol Succinate. Gabapentin. Aspirin. Nitroglcerin. Rosuvastatin. Allergies: Amlodipine.Carosoprodol. Losartan. Simvastatin. Hydromorphone. Bupropion. Codeine w/ tylenol. Cardiac Risk Factors: Family hx. CVD. HTN. Current smoker. HLD. Previous Cardiac Procedures: none Pretest Chest Pain Characteristics: None. Exercise History: Sedentary Physical Disabilities: None Lung Sounds: Clear to auscultation Heart Sounds: Regular Stress Test Details Test: Exercise stress testing was performed using a Karson protocol. Nuclear Acquisition: Rest Tc-99m/Stress Tc-99m 1 day Rest Isotope: Tc-99m Sestamibi. Dose: 10 Date: 01/21/2022 Injection Time: 0930 Stress Isotope: Tc-99m Sestamibi. Dose: 30.2 Date: 01/21/2022 Injection Time: 1132 HR Resting HR Supine: 83 bpmMax Heart Rate (APMHR): 156.592271 bpm Resting HR Standin bpmTarget HR (85% APMHR): 132.056699 bpm Max HR Achieved: 150 bpm % of APMHR: 96.15 Recovery HR: 95 bpm HR response to stress: Normal HR response to stress Comment: Metoprolol succinate held for 3 doses. BP Resting BP Supine: 124/80 mmHg Resting BP Standin/80 mmHg Max BP: 190/66 mmHg Recovery BP: 150/74 mmHg BP response to stress: Normal blood pressure response to stress. ECG Resting ECG: Sinus Rhythm Ectopy: none Stress ECG: Sinus Tachycardia ST Change: Upsloping ST depression, Horizontal ST depression Lead(s): II, III, aVF Stage: [address] Deviation: 1 mm Arrhythmia: VPC's Recovery ECG: Sinus Rhythm Recovery ST Change: No significant ST segment changes noted Recovery Arrhythmia: VPC Comment: ST depressions resolved by 1 minute recovery. Clinical Reason for Termination: Fatigue, Dyspnea Stress Symptoms: Dyspnea, General Fatigue Exercise duration: 6 min43 sec Highest Stage Reached: Stage 3: 3.4 mph at 14% grade. Exercise capacity: 8.15 METs Scale: Sedentary Angina Score: None Myles Treadmill Score: 1.0 Rate Pressure Product: 53493 Stress ECG Conclusion 1. Resting electrocardiogram was within normal limits 2. Patient exercised on a Karson protocol and completed a workload of 8.15 METS 3. Normal heart rate and blood pressure response to exercise. Patient achieved 96% of predicted heart rate for age 4. There was no electrocardiographic evidence of myocardial ischemia with exercise 5. There were no significant dysrhythmias Myles Treadmill Score is 1.0 which is Moderate risk. Stress Test Summary STAGETime (mins)Speed (mph)Grade (%)HRBPSYMPTOMSMETS Vgtztp09152/80 Ttsduxth09039/80 131.512980616/72SP02 93%4.6 262.782172011/807 393.064817kvkoinjr aiivgiq33.2 1 min axtkaeas718432/76SP02 94% Dyspnea subsided 3 min fsnnedko539025/66 6 min cqdrntez26743/74 MPI Conclusion Myocardial perfusion is normal, no ischemia or evidence of prior infarction EF 61%, normal wall motion Radiologist Interpretation Radiologist Interpretation by: Lloyd Becerril MD Interpretation Date/Time: 01/21/2022 16:10:04 Anesthesia Assessment and Plan Anesthesia History Personal History: No History of Anesthesia Complications Family History: No Family History of Anesthesia Complications Exercise Tolerance Exercise Tolerance: Metabolic Equivalents>4 Pertinent Negatives Pertinent Negatives: No Symptoms of GERD, No Major Pulmonary Symptoms or Complaints and No History of CVA/TIA Cardiac & Pulmonary Exam Cardiac Exam: Normal S1/S2 Heart Sounds Pulmonary Exam: Clear Bilateral Breath Sounds Implantable Cardiac Device Does patient have a Pacemaker or an ICD?: No Airway Exam Known Difficult Airway: No Mallampati Class: 2 Mouth Opening: Normal (> 3cm) Thyromental Distance: Greater than 3 cm Neck Range of Motion: Full ROM Neck Circumference: Normal Teeth Condition: Generalized Poor Dentition, Loose or Chipped (lower incisors) and Removable Dentures/Plates Upper Tooth Numberin. Loose ASA Classification ASA Score: ASA 2 Emergency Case?: No NPO Status NPO Status: NPO Clears >2 hours, Solids >8 hours Anesthesia Plan Resuscitation Status: Full Code Anesthesia Technique: General Anesthesia Airway Planned: Natural Airway Monitors Used: Standard Monitors
[2022-11-22 08:17] VITALS: BMI 28.1
--- NOTE | 2022-11-22 08:35 | BOWEL_PTH ---
PATIENT: Ashleigh Mendoza LOC: [facility] U#:[id number] AGE/SX: 66/F ROOM: RE11/22/[address]: Serge Becerril MD : 1955 BED: DIS: 11/22/2022 SPEC #: [id number] RECD: 11/22/22 11:59 STATUS: SHERINE RE #: [id number] ELSA: 11/22/22 08:[address]: Serge Becerril DEPT: Surgical Specimen RECD BY: Luci Thorne ENTERED: 11/22/22 12:01 SP TYPE: Bowel OTHR DR: Kristen Robles V Tissues: 1 - BIOPSY BOWEL 2 - BIOPSY BOWEL 3 - BIOPSY BOWEL Procedures: GROSS AND MICRO LEVEL 4 Comments: [id number]
[2022-11-22 08:55] VITALS: BP 122/66; PULSE 74; RESP 16; TEMP 35.9; O2SAT 95
--- NOTE | 2022-11-22 09:11 | W.ANESPOSTOP ---
Postoperative Evaluation Date, Time and Location Date Performed: 11/22/22 Time Performed: 09:11 Patient Location: Day Surgery Unit Vital Signs Most Recent Imported Vital Signs: Most Recent Vital Signs Temp Pulse Resp BP Pulse Ox 35.9 C L 74 16 122/66 95 11/22/22 08:55 11/22/22 08:55 11/22/22 08:55 11/22/22 08:55 11/22/22 08:55 Pain Score Most Recent Pain Score: Most Recent Pain Score Pain Level 0 11/22/22 08:55 Assessment Mental Status: Awake (Alert & Oriented to Patient Baseline) Airway and Respiratory Function: Patent airway with normal (patient baseline) respiratory exam Cardiovascular Function: Hemodynamically Stable Hydration Status: Adequately Hydrated Nausea & Vomiting: No Nausea or Vomiting Pain: Pt. Denies Any Pain Peripheral Nerve Block: Patient did not receive a nerve block
[2022-11-22 09:27] VITALS: BP 125/59; PULSE 67; RESP 18; TEMP 35.9; O2SAT 96
== END 2022-11-22 09:35 | disposition home or self-care (01) ==
PROVIDERS: PCP Family Medicine; Visit Provider Surgery
PROC: 0DJD8ZZ Inspection of Lower Intestinal Tract, Via Natural or Artificial Opening Endoscopic (ICD-10-PCS; CPT 45378; principal; 2022-11-22 08:00)
DX: Z12.11 Encounter for screening for malignant neoplasm of colon (principal); K63.5 Polyp of colon; Z86.010 Personal history of colon polyps
CPT/HCPCS: 45385; 45380; 88305

== ENCOUNTER 2023-01-11 08:25 | Emergency (ER) | payer MEDICARE, MEDICAID, SELFPAY ==
[2023-01-11 08:40] VITALS: BP 137/78; PULSE 73; RESP 18; TEMP 37.2; O2SAT 97
--- NOTE | 2023-01-11 09:08 | ED.GENADUL_ITS ---
Discharge Plan Disposition Patient Disposition: Home Condition: Stable Discharge Details Clinical Impression: Sore throat Primary Care Provider: Kristen Robles V ED Provider: Horace Michael Home Meds and New Rx's Prescriptions: Continued ibuprofen 800 MG tablet 800 mg PO PRN aspirin [Aspir-81] 81 MG tablet,delayed release (DR/EC) 81 mg PO DAILY nitroglycerin 0.4 MG tablet, sublingual 0.4 mg Sublingual PRN rosuvastatin 10 mg tablet 10 mg PO DAILY cholecalciferol (vitamin D3) 50 mcg (2,000 unit) capsule 50 mcg PO DAILY gabapentin 100 mg capsule 200 mg PO BID metoprolol succinate 25 mg tablet extended release 24 hr 50 mg PO DAILY triamcinolone acetonide 0.1 % cream 1 applic topical BID Discharge Instructions Additional Instructions: Your strep test was negative, you likely have a virus that will resolve with time follow up with your primary care provider if still having symptoms in a week If you feel more ill, have severe worsening pain or inability to swallow liquids return to the emergency department Medical Decision Making 67 yo female comes in with her daughter as they both have had ear pain and sore throat for a few days. Denies fevers, chills, dyspnea, trouble swallowing, changes in voice. She arrives caox4 speaking clearly with normal oropharynx, midline uvula, no erythema, no submandibular swelling and no restricted neck movements or pain over the hyoid, swallowing normally and both ext auditory canals and tm's normal. Strep test negative, suspect viral pharyngitis vs allergies. She is stable for d/c, advised to f/u with pcp and return precautions given. No findings on exam or history to suggest retropharyngeal abscess, peritonsilar abscess or epiglotitis. Differential Diagnosis Differential Diagnosis: viral pharyngitis, allergies, uri HPI General Mode of arrival: ambulatory . Date/Time Provider Initiated Documentation: 01/11/23 08:58 . Limitations to Documentation: no limitations . Information obtained by: patient . History of Present Illness 67 year old F presents to the emergency department with the chief complaint of sore throat, described as mild, Patient started experiencing this day(s) (3) and it has been constant. No relieving factors improve symptom(s), No exacerbating factors reported . Patient notes denies fever/chills. Patient did receive the following treatments prior to arrival, none Related Data Home Medications Medication Instructions Recorded Confirmed aspirin 81 mg tablet,delayed 81 mg PO DAILY 10/01/13 01/11/23 release (Aspir-) ibuprofen 800 mg tablet 800 mg PO PRN 10/01/13 01/11/23 nitroglycerin 0.4 mg sublingual 0.4 mg sublingual PRN 10/01/13 01/11/23 tablet cholecalciferol (vitamin D3) 50 50 mcg PO DAILY 11/05/21 01/11/23 mcg (2,000 unit) capsule gabapentin 100 mg capsule 200 mg PO BID 11/05/21 01/11/23 metoprolol succinate 25 mg 50 mg PO DAILY 11/05/21 01/11/23 tablet,extended release 24 hr rosuvastatin 10 mg tablet 10 mg PO DAILY 11/05/21 01/11/23 triamcinolone acetonide 0.1 % 1 applic topical BID 05/25/22 01/11/23 topical cream Allergies Allergy/AdvReac Type Severity Reaction Status Date / Time amlodipine Allergy Unknown Other (See Verified 11/22/22 07:20 Comment) carisoprodol [From Soma] Allergy Unknown Other (See Verified 11/22/22 07:20 Comment) losartan Allergy Unknown Other (See Verified 11/22/22 07:20 Comment) methylprednisolone Allergy Unknown Verified 11/22/22 07:20 [From Depo-Medrol] simvastatin Allergy Unknown Other (See Verified 11/22/22 07:20 Comment) hydromorphone AdvReac Intermediate vomiting Verified 11/22/22 07:20 and spinning bupropion [From Wellbutrin] AdvReac Mild just Verified 11/22/22 07:20 didn't feel good codeine AdvReac severe Verified 11/22/22 07:20 headache General Stated Complaint: GenMedical BRIDGET: 4 Review of Systems All systems reviewed & are unremarkable except as noted in HPI and below Constitutional Constitutional: Denies chills, Denies fever(s) and Denies weakness ENT Ears, Nose, Mouth, and Throat: Denies change in voice Cardiovascular Cardiovascular: Denies chest pain and Denies dyspnea Respiratory Respiratory: Denies cough and Denies dyspnea Gastrointestinal Gastrointestinal: Denies abdominal pain, Denies nausea and Denies vomiting Musculoskeletal Musculoskeletal: Denies joint swelling Neurologic Neurologic: Denies weakness PFSH All Active Problems (Updated 01/11/23 @ 09:12 by Horace Michael MD) Sore throat (Acute) Thyroid nodule (Acute) Screening for colon cancer (Acute) Eczema (Acute) Skin lesion (Acute) Breast Symptom (Acute) CAD (coronary artery disease) (Chronic) Chest pain of uncertain etiology (Acute) Abnormal mammogram of right breast (Acute) Breast lesion (Acute) Family history of breast cancer (Acute 09/16/17) Mother Maternal aunt Medical History Accidental fall Bilateral carpal tunnel syndrome Depression Elevated lipids (09/16/17) Family history of premature coronary heart disease History of abnormal cervical Pap smear History of colonic polyps Hypercalcemia Hyperparathyroidism Hypertension (09/16/17) Iliotibial band syndrome of right side Left shoulder pain Myalgia Neck stiffness Radicular syndrome of lower limbs Seborrheic keratosis Smoker Squamous papilloma of uvula Warthin's tumor Surgical History Abdominal hysterectomy 2006 Dr Huerta - menorrhagia and fibroids Acquired absence of both cervix and uterus (09/16/17) TA Hyst for Bleeding and Fibroids - Dr Huerta 2006 Cervical Conization/LEEP Family History Son No problems noted. Mother Diabetes Breast cancer Father Diabetes Maternal Aunt Breast cancer maternal Social History Smoking/Tobacco Use Status: Current every day Tobacco Type: cigarettes Smoking packs per day: 1.5 Smoking cigarettes per day: 30.0 Smoking risk assessment performed?: Yes Alcohol Intake: former Drug use: Never Substance use type: does not use Do you feel safe at home: Yes Do you feel safe in your relationship?: Yes Female Reproductive History Menstrual Menopause type: surgical History History 4 Para 4 Hx # Term Pregnancies Multiple births Hx # Pregnancies Ectopic pregnancies AB induced Hx Number of Living Children AB spontaneous Exam Const General: no acute distress Orientation: alert HENMT Head: normal to inspection Ears: external ears normal General nose exam: external nose normal Mouth: moist mucous membranes Eyes General: appearance normal, both eyes and all related structures Neck Neck: normal visual inspection Resp Effort & Inspection: normal respiratory effort and able to speak in complete sentences Cardio Rate: regular rate Skin General skin exam: no rashes or lesions noted Neuro General: patient alert and patient oriented x3 Extrem General: normal to inspection Psych Mental Status: mental status grossly normal Course Vital Signs Vital signs: Vital Signs Temperature 37.2 C 01/11/23 08:40 Pulse 73 01/11/23 08:40 Respiratory Rate 18 01/11/23 08:40 Blood Pressure 137/78 01/11/23 08:40 Pulse Oximetry 97 01/11/23 08:40 Temperature 37.2 C 01/11/23 08:40 Temperature Source Oral 01/11/23 08:40 Pulse 73 01/11/23 08:40 Respiratory Rate 18 01/11/23 08:40 Blood Pressure 137/78 01/11/23 08:40 Pulse Oximetry 97 01/11/23 08:40 Lab/Test Results Lab/Test Results: 01/11/23 08:38 Tonsil - Not Specified Group A Streptococcus Culture - Pending POC Strep Test-BRIANNE(Rapid) Start: 01/11/23 08:45 Freq: .Rapid Strep Test Status: Active Protocol: Document 01/11/23 08:52 ARI (Rec: 01/11/23 08:52 ARI [id number]) Strep test-BRIANNE(Rapid)-POC POC-Strep test-BRIANNE (Rapid) Negative POC-Strep test-BRIANNE (Rapid) Negative
== END 2023-01-11 11:08 | disposition home or self-care (01) ==
PROVIDERS: Emergency Provider Emergency Medicine; PCP Family Medicine
DX: J02.9 Acute pharyngitis, unspecified (principal); R51.9 Headache, unspecified
CPT/HCPCS: 87880; 99282; 87081; 99283

== ENCOUNTER 2023-04-08 13:40 | Outpatient (REF) | payer MEDICARE, MEDICAID, SELFPAY ==
[2023-04-08 15:18] LABS: ESR 20 mm/hr (0-30)
[2023-04-08 15:29] LABS: Hemoglobin A1C 5.9 % (<5.7)
[2023-04-08 15:38] LABS: ALT 24 U/L (14-59); AST 22 U/L (15-37); Albumin 4.1 g/dL (3.4-5.0); Alkaline Phosphatase 100 U/L (46-116); Anion Gap 7.4 mmol/L (3-11); BUN 15 mg/dL (7-18); Bilirubin, Total 0.3 mg/dL (0.2-1.0); C-Reactive Protein 0.07 mg/dL (0.0-0.3); CO2 26.6 mmol/L (21.0-32.0); CREATININE 0.8 mg/dL (0.55-1.02); Chloride 103 mmol/L (98-107); Creatine Kinase 60 U/L (26-192); Estimated GFR 81.72 (mL/min/1.73m2); Glucose 111 mg/dL (74-106); Potassium 4.5 mmol/L (3.5-5.1); Sodium 137 mmol/L (136-145); Total Protein 7.6 g/dL (6.4-8.2)
== END 2023-04-08 13:41 | disposition home or self-care (01) ==
LOC: NCHCN 13:40
PROVIDERS: PCP Family Medicine; Visit Provider Family Medicine
DX: R73.03 Prediabetes (principal); E21.3 Hyperparathyroidism, unspecified; I10 Essential (primary) hypertension; E78.5 Hyperlipidemia, unspecified; M85.88 Other specified disorders of bone density and structure, other site
CPT/HCPCS: 80053; 82550; 85652; 83036; 84443; 86140

== ENCOUNTER → 2023-04-15 01:06 | Outpatient (CLI) | payer MEDICARE, MEDICAID, SELFPAY ==
--- NOTE | 2023-04-15 12:20 | DI.MAMMO_ITS ---
Exam(s) MAMMO SCREENING EXAM: MAMMO SCREENING CLINICAL HISTORY: MAMMO SCREENING FOR BREAST CANCER Z12.31 TECHNIQUE: Mammograms were interpreted according to the usual protocol including computer analysis w [employer] CAD system, tomosynthesis and C-view imaging. COMPARISON: 2012 through 2021 FINDINGS: The breasts are composed of scattered fibroglandular densities, Breast Density category B. No suspicious masses or suspicious microcalcifications are seen. No skin thickening or abnormal axillary lymph nodes are seen. There has been no significant change from prior exams. IMPRESSION: BI-RADS Category 1, Negative mammogram Yearly screening mammography is recommended. Breast Density - Category B, scattered fibroglandular densities. A negative radiographic report should not delay biopsy if a dominant or clinically suspicious mass is present. Up to ten percent of cancers are not identified on mammography. A negative report may reinforce clinical impression. Adenosis and dense breasts may obscure an underlying neoplasm. False positive reports average 6 to 10%. Patient will receive a letter notifying them of these results.
--- NOTE | 2023-04-15 12:27 | DI.CTLCSR_ITS ---
Exam(s) CT CHEST LUNG CANCER SCREEN EXAM: CT CHEST LUNG CANCER SCREEN CLINICAL HISTORY: SCREENING FOR LUNG CA, SMOKER, F17.210 TECHNIQUE: Imaging Protocol: Axial computed tomography images with coronal and sagittal reformatted images were created and reviewed COMPARISON: CT CT CHEST LUNG CANCER SCREEN from 12/29/2021 FINDINGS: Tracheobronchial tree: Patent where visualized. Pulmonary parenchyma: Mild centrilobular emphysematous changes are present. No architectural distort ion. Lung Nodules: There are few tiny nodules all less than 3 mm. Mediastinum and Calista: No dominant adenopathy or fluid collection. The esophagus is unremarkable. Thyroid gland: There are few calcifications again seen in the thyroid gland. No follow-up is recomme nded. Lymph nodes: Unremarkable. Pleura: No effusion or pneumothorax. Heart: The heart is not dilated. Three vessel coronary artery calcification and/or stents are present . No pericardial effusion. Aorta: Thoracic aorta non-dilated.Atherosclerosis. Upper abdomen: There is a 1.4 cm hypodensity again seen in the anterior segment of the right lobe of the liver. It is indeterminate on this examination. Soft Tissues: Unremarkable. Bones: Within normal limits. IMPRESSION: 1. Stable pulmonary nodules. No new or suspicious pulmonary nodules are present. 2. 1.4 cm hypodensity in the right lobe of the liver. It is indeterminate on this noncontrast examin ation. Nonemergent MRI or CT scan of the abdomen is recommended for further evaluation. Lung RADS Cat 2 - Benign Appearance / Behavior: Nodules with a very low likelihood of becoming a clin ically active cancer due to size or lack of growth Lung-RADS 1.0 CATEGORIES: Category 0 - Prior chest CT exam(s) being located for comparison. Category 1 - Annual screening in 12 months. No nodules or definitely benign nodules. Category 2 - Annual screening in 12 months. Benign appearance. Nodules with low likelihood of becomin g active cancer. Category 3 - 6-month follow-up. Probably benign. Short-term follow-up suggested. Nodules with low lik elihood of becoming active cancer. Category 4A - 3-month follow-up and CT/PET if >8 mm in size. Suspicious finding. Findings which requi re additional testing. Category 4B - Findings which require additional testing and tissue sampling. Suspicious finding. Category 4X - Category 3 or 4 nodules with additional features or imaging findings that increases the suspicion of malignancy. Modifier S- Potentially clinically significant finding. (Non lung cancer) Unexpected findings RADIATION DOSE DELIVERED: 76.72mGy.cm Total DLP 76.72mGy.cmTotal DLP DATA REPOSITORY: All CT scans at this facility are submitted to the National Radiology Data Registry (NRDR) Dose Index Registry (DIR) with the [employer] (ACR). RADIATION OPTIMIZATION: All CT scans at this facility use at least one of these dose optimization te chniques: automated exposure control; mA and/or kV adjustment per patient size (includes targeted exa ms where dose is matched to clinical indication); or iterative reconstruction.
--- NOTE | 2023-04-15 12:56 | DI.RAD_ITS ---
Exam(s) XR HIP RT COMPLETE AP PELVIS EXAM: XR HIP RT COMPLETE AP PELVIS INDICATION: LOW BACK PAIN M54.50 RT HIP JOINT PAIN M25.551. COMPARISON: No exams were available for comparison TECHNIQUE: 2D digital imaging was performed. Three views. FINDINGS: Hip joint spaces are maintained bilaterally. There is minimal acetabular spurring. SI joints and pu bic symphysis are unremarkable. IMPRESSION: Minimal degenerative changes. DATA REPOSITORY: RADIATION DOSE DELIVERED:
--- NOTE | 2023-04-15 12:57 | DI.RAD_ITS ---
Exam(s) XR LUMBAR SPINE COMPLETE EXAM: XR LUMBAR SPINE COMPLETE CLINICAL HISTORY: LOW BACK PAIN M54.50 RT HIP JOINT PAIN M25.551. TECHNIQUE: 2D digital imaging was performed. Five views. COMPARISON: CR XR DEXA BONE DENSITY W/WO RUT from 12/25/2021 FINDINGS: BONES: No fracture or destructive lesion. Vertebral body heights are maintained. Prominent endplate osteophytes on the right at L4-5. Osteophytes to the right are also seen at L1-2. Prominent facet h ypertrophy identified L2-3 through L5-S1.. No spondylolysis. DISKS: In severe narrowing of the disc space on the right at L4-5. Moderate narrowing on the left. Remaining disc spaces are maintained. ALIGNMENT: Lumbar spinal alignment is within normal limits. SOFT TISSUE: Normal. IMPRESSION: Degenerative changes, greatest at L4-5. DATA REPOSITORY: RADIATION DOSE DELIVERED:
== END ==
PROVIDERS: PCP Family Medicine; Visit Provider Family Medicine
DX: F17.210 Nicotine dependence, cigarettes, uncomplicated (principal); Z12.31 Encounter for screening mammogram for malignant neoplasm of breast; Z12.2 Encounter for screening for malignant neoplasm of respiratory organs; R91.1 Solitary pulmonary nodule; R93.2 Abnormal findings on diagnostic imaging of liver and biliary tract; M54.50 Low back pain, unspecified; M25.551 Pain in right hip
CPT/HCPCS: 71271; 77063; 77067; 72110; 73502

== ENCOUNTER → 2023-04-29 00:19 | Outpatient (CLI) | payer MEDICARE, MEDICAID, SELFPAY ==
[2023-04-29] MEDS: Omnipaque 350 MG/ML 100 ML BTL IJ (10:55)
[2023-04-29] MEDS: Normal Saline - Diluent 50 ML VIAL IJ (10:55)
[2023-04-29] MEDS: Barium Sulfate 2% W/V-Berry Smoothie 450 ML BTL 900 ML PO (10:57)
--- NOTE | 2023-04-29 11:15 | DI.CT_ITS ---
Exam(s) CT ABDOMEN PELVIS W EXAM: CT ABDOMEN PELVIS W CLINICAL HISTORY: ABNL CHEST CT R91.8. TECHNIQUE: Imaging Protocol: Axial computed tomography images with coronal and sagittal reformatted images were created and reviewed CONTRAST MATERIAL: Intravenous: Omnipaque 350 Contrast volume:100 ml Oral: yes COMPARISON: CT CT CHEST LUNG CANCER SCREEN from 04/15/2023 FINDINGS: ABDOMEN: Lung Bases: Normal where visualized. Liver: Normal density. 14 millimeter area of low density seen on the 2 prior chest CTs appears uncha nged in size. There is no evidence of contrast enhancement, consistent with a simple cyst. No follo w-up recommended. Additional tiny cyst is seen in inferiorly. Gallbladder and biliary tract: No radiodense calculus or dilation. Pancreas: Normal density, no abnormal calcifications or inflammatory process. Spleen: Normal. Kidneys: Normal size, contour and axis. No radiodense stones or obstructive uropathy. No suspicious m asses seen. Adrenal glands: No masses seen. Vasculature: Abdominal aorta non-dilated. Atherosclerotic calcification. Soft tissues: Unremarkable. PELVIS: Bladder: No gross wall thickening. No calculi.No focal mass. Bowel: No obstruction. No bowel wall thickening. Appendix normal. Peritoneal cavity: No ascites, collection or mesenteric inflammatory response. Bones: Degenerative disc changes at L4-5. Reproductive organs: Hysterectomy Lymph nodes: Unremarkable. IMPRESSION:: Liver lesion seen on chest CT has the appearance of a simple cyst. No follow-up recomm ended. RADIATION DOSE DELIVERED: 828.04mGy.cm Total DLP DATA REPOSITORY: All CT scans at this facility are submitted to the National Radiology Data Registry (NRDR) Dose Index Registry (DIR) with the [employer] (ACR). RADIATION OPTIMIZATION: All CT scans at this facility use at least one of these dose optimization te chniques: automated exposure control; mA and/or kV adjustment per patient size (includes targeted exa ms where dose is matched to clinical indication); or iterative reconstruction.
== END ==
PROVIDERS: PCP Family Medicine; Visit Provider Physician Assistant Medical
DX: R91.8 Other nonspecific abnormal finding of lung field (principal)
CPT/HCPCS: 74177; J3490

== ENCOUNTER 2023-08-29 05:12 | Outpatient (CLI) | payer MEDICARE, MEDICAID, SELFPAY ==
[2023-08-29 10:58] LABS: Albumin 4.2 g/dL (3.4-5.0); CREATININE 0.8 mg/dL (0.55-1.02); Calcium 11.1 mg/dL (8.5-10.1); Estimated GFR 81.72 (mL/min/1.73m2)
[2023-08-29 11:34] LABS: Vitamin D 25 Total 24.6 ng/mL (30-100)
[2023-08-30 09:08] LABS: Parathyroid Hormone,Intact 126 pg/mL (19-88)
== END 2023-08-29 05:13 | disposition home or self-care (01) ==
LOC: LBO 05:13
PROVIDERS: PCP Family Medicine; Visit Provider Internal Medicine
DX: E21.3 Hyperparathyroidism, unspecified (principal)
CPT/HCPCS: 36415; 82306; 82040; 82310; 82565; 83970

== ENCOUNTER 2023-09-27 17:45 | Outpatient (REF) | payer MEDICARE, MEDICAID, SELFPAY ==
[2023-09-27 16:28] LABS: Anion Gap 8.2 mmol/L (3-11); BUN 19 mg/dL (7-18); CO2 27.8 mmol/L (21.0-32.0); CREATININE 0.9 mg/dL (0.55-1.02); Chloride 103 mmol/L (98-107); Estimated GFR 70.95 (mL/min/1.73m2); Glucose 198 mg/dL (74-106); Potassium 3.9 mmol/L (3.5-5.1); Sodium 139 mmol/L (136-145)
== END 2023-09-27 17:46 | disposition home or self-care (01) ==
LOC: NCHCN 17:45
PROVIDERS: PCP Family Medicine; Visit Provider Nurse Practitioner Family
DX: I10 Essential (primary) hypertension (principal)
CPT/HCPCS: 80048

== ENCOUNTER → 2024-01-12 00:19 | Outpatient (CLI) | payer MEDICARE, MEDICAID, SELFPAY ==
--- NOTE | 2024-01-12 | DI.DEXA_ITS ---
Exam(s) XR DEXA BONE DENSITY W/WO RUT EXAM: XR DEXA BONE DENSITY W/WO RUT CLINICAL HISTORY: HYPERPARATHYROIDISM, E21.3 TECHNIQUE: H[employer] Horizon C densitometer analysis of left hip, lumbar spine and left forearm. Lat eral survey image of the thoracic and lumbar spine. COMPARISON: DX DEXA BONE DENSITY WITH RUT from 07/06/2016 CR XR DEXA BONE DENSITY W/WO RUT from 12/25/2021 CR XR LUMBAR SPINE COMPLETE from 04/15/2023 FINDINGS: Lateral view of the thoracic and lumbar spine shows no evidence of compression fractures. Bone mineral density measurements of the lumbar spine correspond to a total T-score of -0.5, in the normal range. This represents a 2.6 percent increase from 2021 and an 8.9 percent decrease from 2015 . Bone mineral density measurements of the left hip correspond to a total T-score of -0.7. This repre sents an 8.8 percent decrease from 2021 and 818.4 percent decrease from 2015. The femoral neck T-sco re is -0.1, in the normal range. Theleft forearm bone mineral density measurements correspond to a T-score of the distal 3rd of -2.1, in the osteopenic range. This represents a 9.2 percent decrease from 2015 but is not significantly changed from 2021.. IMPRESSION: Normal bone mineral density of the spine and hip. Osteopenia of the forearm.
== END ==
PROVIDERS: PCP Family Medicine; Visit Provider Internal Medicine
DX: E21.3 Hyperparathyroidism, unspecified (principal)
CPT/HCPCS: 77080

== ENCOUNTER 2024-02-29 11:17 | Emergency (ER) | payer MEDICARE, MEDICAID, SELFPAY ==
[2024-02-29] VITALS (47 sets, daily range): BP systolic 109–159; BP diastolic 44–90; PULSE 65–84; RESP 7–19; TEMP 36.7; O2SAT 91–97
--- NOTE | 2024-02-29 11:15 | RT.EKG_ITS ---
APPROVED REPORT Exam: Resting ECG Reason for Exam: chest pain Patient Location: E HR:81 bpm ECG Measurements Heart Rate [address] 156 P 73 QRSd 92 QRS 38 QT 363 T 79 QTc 422 Conclusion Sinus rhythm...normal P axis, V-rate 60- 99 Consider anterior infarct...Q >30mS in V2-V5 Physician: no stemi
--- NOTE | 2024-02-29 11:32 | ED.GENADUL_ITS ---
Discharge Plan Disposition Patient Disposition: Home Condition: Stable Discharge Details Clinical Impression: Shoulder pain, left, Acute thoracic myofascial strain Primary Care Provider: Kristen Robles V ED Provider: Barb Miller Home Meds and New Rx's Prescriptions: Continued ibuprofen 800 MG tablet 800 mg PO PRN aspirin [Aspir-81] 81 MG tablet,delayed release (DR/EC) 81 mg PO DAILY nitroglycerin 0.4 MG tablet, sublingual 0.4 mg Sublingual PRN rosuvastatin 10 mg tablet 10 mg PO DAILY cholecalciferol (vitamin D3) 50 mcg (2,000 unit) capsule 50 mcg PO DAILY gabapentin 100 mg capsule 200 mg PO BID metoprolol succinate 25 mg tablet extended release 24 hr 50 mg PO DAILY triamcinolone acetonide 0.1 % cream 1 applic topical BID Discharge Instructions Instructions: Back Exercises, Muscle Strain ED, Shoulder Pain ED Additional Instructions: Alternate ice and heat. At this time there is no evidence for heart attack, no blood clot in your lungs no pneumonia. Differential includes obstruction. This could be a pleuritic type chest pain which is an inflammation in your lungs or muscle strain. Please return to the ER for any worsening pain, dizziness lightheadedness nausea vomiting chest pain shortness of breath or concerns. Referrals: Kristen Robles MD [Primary Care Provider] - 1 week HPI General Mode of arrival: ambulatory . Date/Time Provider Initiated Documentation: 02/29/24 11:19 . Limitations to Documentation: no limitations . Information obtained by: patient, family, RN notes reviewed and old records reviewed . HPI Narrative: 68-year-old female presents to the ER with a chief complaint of left shoulder pain which began 4 days ago which now radiation up into the back of her neck, into her chest and back down left arm. She does take 81 mg chewable aspirin nightly did take some last night. She is a smoker history of hyperparathyroidism, CAD, does have strong family history of cardiac disease. She is on high cholesterol medication and hypertension medication. She does endorse some shortness of breath, cough with white sputum. Other past medical history includes depression, tubular adenoma and family history of breast cancer. She denies any swelling in her legs initially denies any nausea vomiting diarrhea or abdominal pain. However she does remember that she did vomit 1 time few days ago. Denies any illicit drugs or alcohol. Related Data Home Medications ?Medication ?Instructions ?Recorded ?Confirmed aspirin 81 mg tablet,delayed 81 mg PO DAILY 10/01/13 02/29/24 release (Aspir-) ibuprofen 800 mg tablet 800 mg PO PRN 10/01/13 02/29/24 nitroglycerin 0.4 mg sublingual 0.4 mg sublingual PRN 10/01/13 02/29/24 tablet cholecalciferol (vitamin D3) 50 50 mcg PO DAILY 11/05/21 02/29/24 mcg (2,000 unit) capsule gabapentin 100 mg capsule 200 mg PO BID 11/05/21 02/29/24 metoprolol succinate 25 mg 50 mg PO DAILY 11/05/21 02/29/24 tablet,extended release 24 hr rosuvastatin 10 mg tablet 10 mg PO DAILY 11/05/21 02/29/24 triamcinolone acetonide 0.1 % 1 applic topical BID 05/25/22 02/29/24 topical cream Allergies Allergy/AdvReac Type Severity Reaction Status Date / Time amlodipine Allergy Unknown Other (See Verified 11/22/22 07:20 Comment) carisoprodol (From Soma) Allergy Unknown Other (See Verified 11/22/22 07:20 Comment) losartan Allergy Unknown Other (See Verified 11/22/22 07:20 Comment) methylprednisolone (From Allergy Unknown Verified 11/22/22 07:20 Depo-Medrol) simvastatin Allergy Unknown Other (See Verified 11/22/22 07:20 Comment) hydromorphone AdvReac Intermediate vomiting Verified 11/22/22 07:20 and spinning bupropion (From Wellbutrin) AdvReac Mild just Verified 11/22/22 07:20 didn't feel good codeine AdvReac severe Verified 11/22/22 07:20 headache General Stated Complaint: Chest Pain BRIDGET: 3 Review of Systems All systems reviewed & are unremarkable except as noted in HPI and below ENT Ears, Nose, Mouth, and Throat: Reports neck pain Cardiovascular Cardiovascular: Denies chest pain, Denies rapid heart rate, Denies leg edema and Reports dyspnea Respiratory Respiratory: Reports cough, Reports dyspnea and Denies wheezing Gastrointestinal Gastrointestinal: Denies abdominal pain and Denies diarrhea Musculoskeletal Musculoskeletal: Reports as per HPI, Reports back pain, Reports neck pain, Denies numbness, Reports radiating pain into limb and Reports stiffness Neurologic Neurologic: Denies numbness Allergic/Immunologic Allergic/Immunologic: Denies wheezing Exam Narrative Exam Narrative: Constitutional: Alert and oriented x3. Appears stated age. Normal body habitus. Head: Normocephalic, no trauma. Eyes: Pupils PERRL, Red reflex noted, EOM's intact. Eyelids symmetrical without lesions, discharge, or swelling. ENT: Bilateral TM's WNL, External ear normal to inspection, no mastoid TTP, swelling, or erythema, Nasal turbinates WNL, no nasal discharge. Normal dentition, Posterior pharynx WNL, no exudate. Chest: RRR, Normal S1, S2, distal pulses intact. Resp: Lungs clear to auscultation bilaterally, no wheezes, rales, or rhonchi. Abdomen: Soft, non-distended, Normoactive bowel sounds all 4 quads. Musculoskeletal: Normal gait, Moves all 4 extremities without difficulty. Skin: No suspicious rashes or lesions. Capillary refill less than 2 sec. Neurologic: Cranial nerves II-XII intact. Alert and oriented x 3. Motor: No deficits noted. Sensory: Intact bilaterally all 4 extremities. Hematologic/Lymphatic: No ecchymosis, no lymphadenopathy. Course Vital Signs Vital signs: Vital Signs Pulse 83 02/29/24 11:22 Respiratory Rate 15 02/29/24 11:22 Blood Pressure 159/83 H 02/29/24 11:22 Pulse Oximetry 97 02/29/24 11:22 Pulse 83 02/29/24 11:22 Respiratory Rate 15 02/29/24 11:26 Respiratory Effort Normal 02/29/24 11:26 Respiratory Depth Normal 02/29/24 11:26 Respiratory Pattern Normal 02/29/24 11:26 Blood Pressure 159/83 H 02/29/24 11:22 Blood Pressure Position Sitting 02/29/24 11:22 Pulse Oximetry 97 02/29/24 11:22 Oxygen Delivery Method Room Air 02/29/24 11:22 Oxygen Flow Rate 0 02/29/24 11:22 Pain Level 7 02/29/24 11:26 Medical Decision Making 68-year-old female presents to the ER with a chief complaint of left shoulder pain which began 4 days ago which now radiation up into the back of her neck, into her chest and back down left arm. She does take 81 mg chewable aspirin nightly did take some last night. She is a smoker history of hyperparathyroidism, CAD, does have strong family history of cardiac disease. She is on high cholesterol medication and hypertension medication. She does endorse some shortness of breath, cough with white sputum. Other past medical history includes depression, tubular adenoma and family history of breast cancer. She denies any swelling in her legs initially denies any nausea vomiting diarrhea or abdominal pain. However she does remember that she did vomit 1 time few days ago. Denies any illicit drugs or alcohol. EKG was reviewed by myself and Dr. Dougherty ER attending, no old EKG available for review. Please see official report. Workup ordered including serial troponins, proBNP, PT PTT, CT chest rule out PE. Fluvid swab. On initial exam she does have some rubbing/rhonchi to her left upper and lower lobe. Clear to auscultation on the right. No obvious deformity noted to her shoulder, she does have some tenderness with palpation to the left paraspinous cervical muscles, she is able to fully flex and extend and rotate her neck without difficulty. Denies any headache. Differential diagnosis includes not limited to CAD, [place], musculoskeletal strain, PE, pneumonia, COVID flu,, aortic aneurysm. CT shows no evidence for PE, no acute abnormality please see official report. Serial troponin within normal limits. Patient reports that she feels much better after 4 morphine and a lidocaine patch. Will plan to discharge patient home. This text was generated using [employer] dictation system, please disregard any oddities of phrase or misspellings. Medical Records Medical records reviewed: Yes I reviewed the patient's medical records. Imaging Data Radiologic Study: Imaging: CT Scan Radiologist's impression: FINDINGS: Pulmonary Arteries: No evidence of filling defect to suggest pulmonary emboli. Tracheobronchial tree: No mucous plugging. Mediastinum and Calista: No dominant adenopathy or fluid collection. Pulmonary parenchyma: No consolidation or dominant measurable mass. Mild emphysematous changes. Pleura: No effusion or pneumothorax. Heart: The heart is not dilated. coronary artery calcifications are seen. Aorta: Thoracic aorta non-dilated. No dissection. Upper abdomen: No acute findings. Bones: Unremarkable for age. Tubes, Catheters, and Lines: None Soft tissues: Unremarkable. IMPRESSION: No evidence of pulmonary embolism or other acute abnormality.. Lab Data Lab results reviewed: Yes I reviewed the patient's lab results. Labs: Laboratory Tests Range/Units 0802/29/24 02/29/24 11:30 11:35 12:10 WBC (4.4-10.8) 10^3/uL 8.00 RBC (3.93-5.22) 10^6/uL 5.67 H Hgb (11.2-15.7) g/dL 16.7 H Hct (36.0-46.0) % 50.6 H MCV (80-95) fL 89 MCH (27.0-33.0) pg 29.5 MCHC (32.0-36.0) % 33.0 RDW (11.7-14.6) % 12.2 Plt Count (130-400) 10^3/uL 263 MPV (8.0-11.0) fL 9.2 Immature Gran % % 0.3 Neutrophils % % 53.5 Lymphocytes % % 37.1 Monocytes % % 6.8 Eosinophils % % 1.5 Basophils % % 0.8 Nucleated RBC % (0.0-0.3) % 0.0 Absolute Neutrophils (1.2-6.7) 10^3/uL 4.29 Absolute Lymphocytes (1.2-3.4) 10^3/uL 2.97 Absolute Monocytes (0.1-0.8) 10^3/uL 0.54 Absolute Eosinophils (0.0-0.7) 10^3/uL 0.12 Absolute Basophils (0.0-0.2) 10^3/uL 0.06 PT (9.1-11.1) sec 10.1 INR (0.9-1.1) 1.0 APTT (23.6-32.8) sec 26.5 D-Dimer Cancelled Sodium (136-145) mmol/L 137 Potassium (3.5-5.1) mmol/L 4.2 Chloride (98-107) mmol/L 101 Carbon Dioxide (21.0-32.0) mmol/L 28.9 Anion Gap (3-11) mmol/L 7.1 BUN (7-18) mg/dL 13 Creatinine (0.55-1.02) mg/dL 0.9 Est GFR (CKD-EPI 2020) (mL/min/1.73m2) 70.51 Glucose (74-106) mg/dL 116 H Calcium (8.5-10.1) mg/dL 11.2 H Magnesium (1.8-2.4) mg/dL 2.0 Total Bilirubin (0.2-1.0) mg/dL 0.35 AST (15-37) U/L 18 ALT (14-59) U/L 32 Alkaline Phosphatase (46-116) U/L 100 Troponin I (< or =60) ng/L < 50 NT-Pro-B Natriuret Pep (<300) pg/mL 53 Total Protein (6.4-8.2) g/dL 8.2 Albumin (3.4-5.0) g/dL 4.4 COVID-19 Source Nasopharynx SARS-CoV-2 (PCR) (Negative) Negative Influenza Type A (PCR) (Negative) Negative Influenza Type B (PCR) (Negative) Negative RSV (PCR) (Negative) Negative Range/Units 02/29/24 14:44 WBC (4.4-10.8) 10^3/uL RBC (3.93-5.22) 10^6/uL Hgb (11.2-15.7) g/dL Hct (36.0-46.0) % MCV (80-95) fL MCH (27.0-33.0) pg MCHC (32.0-36.0) % RDW (11.7-14.6) % Plt Count (130-400) 10^3/uL MPV (8.0-11.0) fL Immature Gran % % Neutrophils % % Lymphocytes % % Monocytes % % Eosinophils % % Basophils % % Nucleated RBC % (0.0-0.3) % Absolute Neutrophils (1.2-6.7) 10^3/uL Absolute Lymphocytes (1.2-3.4) 10^3/uL Absolute Monocytes (0.1-0.8) 10^3/uL Absolute Eosinophils (0.0-0.7) 10^3/uL Absolute Basophils (0.0-0.2) 10^3/uL PT (9.1-11.1) sec INR (0.9-1.1) APTT (23.6-32.8) sec D-Dimer Sodium (136-145) mmol/L Potassium (3.5-5.1) mmol/L Chloride (98-107) mmol/L Carbon Dioxide (21.0-32.0) mmol/L Anion Gap (3-11) mmol/L BUN (7-18) mg/dL Creatinine (0.55-1.02) mg/dL Est GFR (CKD-EPI 2020) (mL/min/1.73m2) Glucose (74-106) mg/dL Calcium (8.5-10.1) mg/dL Magnesium (1.8-2.4) mg/dL Total Bilirubin (0.2-1.0) mg/dL AST (15-37) U/L ALT (14-59) U/L Alkaline Phosphatase (46-116) U/L Troponin I (< or =60) ng/L < 50 NT-Pro-B Natriuret Pep (<300) pg/mL Total Protein (6.4-8.2) g/dL Albumin (3.4-5.0) g/dL COVID-19 Source SARS-CoV-2 (PCR) (Negative) Influenza Type A (PCR) (Negative) Influenza Type B (PCR) (Negative) RSV (PCR) (Negative) Quality:SDOH Health Related Social Needs: No Data to Display PFSH All Active Problems (Updated 02/29/24 @ 15:39 by Barb Miller NP) Acute thoracic myofascial strain (Acute) Shoulder pain, left (Acute) Tubular adenoma (Acute ~11/22/22) largest polyp 10mm recommend 3 yrs Thyroid nodule (Acute) Screening for colon cancer (Acute) Eczema (Acute) Skin lesion (Acute) Breast Symptom (Acute) CAD (coronary artery disease) (Chronic) Chest pain of uncertain etiology (Acute) Abnormal mammogram of right breast (Acute) Breast lesion (Acute) Family history of breast cancer (Acute 09/16/17) Mother Maternal aunt Medical History Depression Squamous papilloma of uvula Smoker History of abnormal cervical Pap smear Neck stiffness Myalgia Bilateral carpal tunnel syndrome Seborrheic keratosis Iliotibial band syndrome of right side Radicular syndrome of lower limbs Family history of premature coronary heart disease Left shoulder pain Accidental fall Hypercalcemia Warthin's tumor Hyperparathyroidism History of colonic polyps Elevated lipids (09/16/17) Hypertension (09/16/17) Surgical History History of colonoscopy with polypectomy (~11/22/22) Acquired absence of both cervix and uterus (09/16/17) TA Hyst for Bleeding and Fibroids - Dr Huerta 2006 Abdominal hysterectomy 2006 Dr Huerta - menorrhagia and fibroids Cervical Conization/LEEP Family History Son No problems noted. Mother Diabetes Breast cancer Father Diabetes Maternal Aunt Breast cancer maternal Social History Smoking/Tobacco Use Status: Current every day Tobacco Type: cigarettes Smoking packs per day: 1.5 Smoking cigarettes per day: 30.0 Smoking risk assessment performed?: Yes Alcohol Intake: former Drug use: Never Substance use type: does not use Do you feel safe at home: Yes Do you feel safe in your relationship?: Yes Female Reproductive History Menstrual Menopause type: surgical History History 4 Para 4 Hx # Term Pregnancies Multiple births Hx # Pregnancies Ectopic pregnancies AB induced Hx Number of Living Children AB spontaneous
[2024-02-29 11:46] LABS: Abs Immature Grans 0.02 10^3/uL (0.0-0.06); Absolute Basophil Count 0.06 10^3/uL (0.0-0.2); Absolute Eosinophil Count 0.12 10^3/uL (0.0-0.7); Absolute Lymphocyte Count 2.97 10^3/uL (1.2-3.4); Absolute Monocyte Count 0.54 10^3/uL (0.1-0.8); Absolute Neutrophil Count 4.29 10^3/uL (1.2-6.7); Basophils % 0.8 %; Eosinophils % 1.5 %; HCT 50.6 % (36.0-46.0); HGB 16.7 g/dL (11.2-15.7); Immature Grans % 0.3 %; Lymphocytes % 37.1 %; MCH 29.5 pg (27.0-33.0); MCV 89 fL (80-95); MPV 9.2 fL (8.0-11.0); Monocytes % 6.8 %; Neutrophils % 53.5 %; Platelet Count 263 10^3/uL (130-400); RBC 5.67 10^6/uL (3.93-5.22); RDW 12.2 % (11.7-14.6); RDW-SD 40.4 fL
[2024-02-29] MEDS: Aspirin 81 MG CHEW 324 MG CH (11:49)
[2024-02-29 12:04] LABS: PTT Activated 26.5 sec (23.6-32.8); Prothrombin Time 10.1 sec (9.1-11.1)
[2024-02-29] MEDS: Normal Saline 500 ML IV (12:11)
[2024-02-29] MEDS: Ondansetron 4 MG/2 ML VIAL IVP (12:12)
[2024-02-29] MEDS: MORPHine 10 MG/ML VIAL 2 MG IVP ×2 (12:21→12:50)
[2024-02-29 12:25] LABS: ALT 32 U/L (14-59); AST 18 U/L (15-37); Albumin 4.4 g/dL (3.4-5.0); Alkaline Phosphatase 100 U/L (46-116); Anion Gap 7.1 mmol/L (3-11); BUN 13 mg/dL (7-18); Bilirubin, Total 0.35 mg/dL (0.2-1.0); CO2 28.9 mmol/L (21.0-32.0); CREATININE 0.9 mg/dL (0.55-1.02); Calcium 11.2 mg/dL (8.5-10.1); Chloride 101 mmol/L (98-107); Estimated GFR 70.51 (mL/min/1.73m2); Glucose 116 mg/dL (74-106); NT-proBNP 53 pg/mL (<300); Potassium 4.2 mmol/L (3.5-5.1); Sodium 137 mmol/L (136-145); Total Protein 8.2 g/dL (6.4-8.2); Troponin I < 50 ng/L (< or =60)
[2024-02-29] MEDS: Lidocaine 5% Patch 1 PATCH TP (12:50)
[2024-02-29 12:53] LABS: COVID-19 PCR Negative (Negative); Influenza A PCR Negative (Negative); Influenza B PCR Negative (Negative); RSV PCR Negative (Negative)
[2024-02-29 12:56] LABS: Source Nasopharynx
[2024-02-29] MEDS: Normal Saline - Diluent 50 ML VIAL IJ (13:16)
[2024-02-29] MEDS: Omnipaque 350 MG/ML 100 ML BTL IJ (13:19)
--- NOTE | 2024-02-29 13:30 | DI.CT_ITS ---
Exam(s) CT CHEST PE CTA EXAM: CT CHEST PE CTA CLINICAL HISTORY: Left sided chest pain, Left shoulder pain, SOB, Co. TECHNIQUE: Imaging Protocol: Axial CT angiography was performed with multi-slice acquisition and mu lti-planar reconstructions as well as axial, coronal and sagittal MIP reconstructions. CONTRAST MATERIAL: Intravenous: Omnipaque 350 Contrast volume:70 ml COMPARISON: No exams were available for comparison FINDINGS: Pulmonary Arteries: No evidence of filling defect to suggest pulmonary emboli. Tracheobronchial tree: No mucous plugging. Mediastinum and Calista: No dominant adenopathy or fluid collection. Pulmonary parenchyma: No consolidation or dominant measurable mass. Mild emphysematous changes. Pleura: No effusion or pneumothorax. Heart: The heart is not dilated. coronary artery calcifications are seen. Aorta: Thoracic aorta non-dilated. No dissection. Upper abdomen: No acute findings. Bones: Unremarkable for age. Tubes, Catheters, and Lines: None Soft tissues: Unremarkable. IMPRESSION: No evidence of pulmonary embolism or other acute abnormality.. RADIATION DOSE DELIVERED: Total DLP DATA REPOSITORY: All CT scans at this facility are submitted to the National Radiology Data Registry (NRDR) Dose Index Registry (DIR) with the [employer] (ACR). RADIATION OPTIMIZATION: All CT scans at this facility use at least one of these dose optimization te chniques: automated exposure control; mA and/or kV adjustment per patient size (includes targeted exa ms where dose is matched to clinical indication); or iterative reconstruction.
--- NOTE | 2024-02-29 14:30 | RT.EKG_ITS ---
APPROVED REPORT Exam: Resting ECG Reason for Exam: Repeat Patient Location: E HR:70 bpm ECG Measurements Heart Rate 70 AXIS NM 175 P 74 QRSd 89 QRS 28 QT 396 T 77 QTc 428 Conclusion Sinus rhythm...normal P axis, V-rate 60- 99 Consider anterior infarct...Q >30mS in V2-V5 sinus normal axis, normal interals, non ischemic
[2024-02-29 15:33] LABS: Troponin I < 50 ng/L (< or =60)
== END 2024-02-29 15:48 | disposition home or self-care (01) ==
PROVIDERS: Emergency Provider Registered Nurse Emergency; PCP Family Medicine
DX: S29.012A Strain of muscle and tendon of back wall of thorax, initial encounter (principal); I25.10 Atherosclerotic heart disease of native coronary artery without angina pectoris; E21.3 Hyperparathyroidism, unspecified; F17.210 Nicotine dependence, cigarettes, uncomplicated; Z82.49 Family history of ischemic heart disease and other diseases of the circulatory system; Z79.82 Long term (current) use of aspirin
CPT/HCPCS: 71275; 80053; 87637; 93005; 96361; 96374; 96375; 96376; 99285; 83735; 83880; 84484; 85025; 85379; 85610; 85730; 93010; 99284; J2270; J2405; J3490

== ENCOUNTER 2024-04-17 02:43 | Outpatient (CLI) | payer MEDICARE, MEDICAID, SELFPAY ==
[2024-04-17 13:25] LABS: ALT 26 U/L (14-59); AST 23 U/L (15-37); Albumin 3.8 g/dL (3.4-5.0); Alkaline Phosphatase 91 U/L (46-116); Anion Gap 6.7 mmol/L (3-11); BUN 17 mg/dL (7-18); Bilirubin, Total 0.24 mg/dL (0.2-1.0); CO2 29.3 mmol/L (21.0-32.0); CREATININE 0.9 mg/dL (0.55-1.02); Calcium 10.3 mg/dL (8.5-10.1); Chloride 105 mmol/L (98-107); Estimated GFR 70.51 (mL/min/1.73m2); Glucose 94 mg/dL (74-106); Sodium 141 mmol/L (136-145); Total Protein 7.1 g/dL (6.4-8.2); Vitamin D 25 Total 25.6 ng/mL (30-100)
[2024-04-17 13:41] LABS: Hemoglobin A1C 6.1 % (<5.7)
[2024-04-17 23:22] LABS: Parathyroid Hormone,Intact 115 pg/mL (19-88)
== END 2024-04-17 02:44 | disposition home or self-care (01) ==
LOC: LBO 02:44
PROVIDERS: PCP Family Medicine; Visit Provider Family Medicine
DX: R73.03 Prediabetes (principal); E83.52 Hypercalcemia; I10 Essential (primary) hypertension
CPT/HCPCS: 36415; 80053; 82306; 82330; 83036; 83970; 84443

== ENCOUNTER 2024-04-27 00:47 | Outpatient (CLI) | payer MEDICARE, MEDICAID, SELFPAY ==
--- NOTE | 2024-04-27 | DI.MAMMO_ITS ---
Exam(s) MAMMO SCREENING EXAM: MAMMO SCREENING CLINICAL HISTORY: SCREENING, Z12.31 TECHNIQUE: Mammograms were interpreted according to the usual protocol including computer analysis w [employer] CAD system, tomosynthesis and C-view imaging. COMPARISON: 2014 through 2022 FINDINGS: The breasts are composed of scattered fibroglandular densities, Breast Density category B. No suspicious masses or suspicious microcalcifications are seen. Left-sided biopsy marker clip. No skin thickening or abnormal axillary lymph nodes are seen. There has been no significant change from prior exams. IMPRESSION: BI-RADS Category 1, Negative mammogram Yearly screening mammography is recommended. Breast Density - Category B, scattered fibroglandular densities. A negative radiographic report should not delay biopsy if a dominant or clinically suspicious mass is present. Up to ten percent of cancers are not identified on mammography. A negative report may reinforce clinical impression. Adenosis and dense breasts may obscure an underlying neoplasm. False positive reports average 6 to 10%. Patient will receive a letter notifying them of these results.
== END 2024-04-27 01:07 ==
LOC: DI 00:47
PROVIDERS: PCP Family Medicine; Visit Provider Family Medicine
DX: Z12.31 Encounter for screening mammogram for malignant neoplasm of breast (principal)
CPT/HCPCS: 77063; 77067

== ENCOUNTER 2024-11-01 00:58 | Outpatient (CLI) | payer MEDICARE, MEDICAID, SELFPAY ==
--- NOTE | 2024-11-01 | DI.US_ITS ---
Exam(s) US THYROID EXAM: US THYROID CLINICAL HISTORY: Hyperparathyroidism, E21.3. TECHNIQUE: Ultrasound thyroid performed using standard protocol. COMPARISON: US US THYROID from 02/08/2022 FINDINGS: ISTHMUS: 4 mm RIGHT LOBE: Size: 6.0 x 2.1 x 1.7 cm Echogenicity: Normal. Vascularity: Hyperemia Nodules: 1. 1.5 x 1.0 x 1.4 centimeter solid hypoechoic nodule with macrocalcifications, TR 4. No c hange from prior. 2. 1.3 x 1.1 x 1.2 centimeter solid hypoechoic nodule with macrocalcifications, TR 4, not changed fr om prior. LEFT LOBE: Size: 6.0 x 3.0 x 2.0 cm Echogenicity: Normal. Vascularity: Normal hyperemic Nodules: 3. 1.9 x 1.7 x 1.5 centimeter solid isoechoic nodule, taller than wide with smooth margins without echogenic foci, TR 4. No significant change from prior. 4. 1.8 x 1.6 x 1.3 centimeter solid hypoechoic nodule smoothly marginated without echogenic foci. S lightly taller than wide. TR 4. Question of slight increase in size. OTHER FINDINGS: No adenopathy IMPRESSION: Bilateral thyroid nodules, TR 4. Biopsy could be considered. DATA REPOSITORY:
== END 2024-11-01 01:18 ==
LOC: DI 00:59
PROVIDERS: PCP Family Medicine; Visit Provider Family Medicine
DX: E21.3 Hyperparathyroidism, unspecified (principal); E04.2 Nontoxic multinodular goiter
CPT/HCPCS: 76536

== ENCOUNTER 2024-11-01 02:18 | Outpatient (CLI) | payer MEDICARE, MEDICAID, SELFPAY ==
[2024-11-01 11:40] LABS: HCT 45.9 % (36.0-46.0); HGB 14.7 g/dL (11.2-15.7)
[2024-11-01 12:07] LABS: ALT 34 U/L (14-59); AST 19 U/L (15-37); Alkaline Phosphatase 96 U/L (46-116); Anion Gap 5.7 mmol/L (3-11); BUN 19 mg/dL (7-18); Bilirubin, Total 0.3 mg/dL (0.2-1.0); CO2 29.3 mmol/L (21.0-32.0); CREATININE 0.9 mg/dL (0.55-1.02); Calcium 10.9 mg/dL (8.5-10.1); Chloride 105 mmol/L (98-107); Estimated GFR 70.51 (mL/min/1.73m2); Glucose 158 mg/dL (74-106); PHOSPHORUS 2.5 mg/dL (2.6-4.7); Potassium 3.7 mmol/L (3.5-5.1); Sodium 140 mmol/L (136-145); TSH (W/Ref FT4) 1.02 uIU/mL (0.36-3.74); Total Protein 7.6 g/dL (6.4-8.2)
[2024-11-01 12:44] LABS: Albumin 4.1 g/dL (3.4-5.0); Calculated LDL 72 mg/dL (<100); Cholesterol 187 mg/dL (<200); HDL Cholesterol 44 mg/dL (>or=50); Triglyceride 359 mg/dL (<150); Vitamin D 25 Total 20 ng/mL (30-100)
== END 2024-11-01 02:19 | disposition home or self-care (01) ==
LOC: LBO 02:19
PROVIDERS: PCP Family Medicine; Visit Provider Family Medicine
DX: I10 Essential (primary) hypertension (principal); E21.3 Hyperparathyroidism, unspecified
CPT/HCPCS: 36415; 80053; 80061; 82306; 76536; 83970; 84100; 84443; 85014; 85018

== ENCOUNTER 2025-01-16 01:28 | Outpatient (CLI) | payer MEDICARE, MEDICAID, SELFPAY ==
[2025-01-16 09:16] LABS: Albumin 4.1 g/dL (3.4-5.0); CREATININE 0.8 mg/dL (0.55-1.02); Calcium 10.5 mg/dL (8.5-10.1); Estimated GFR 80.71 (mL/min/1.73m2); PHOSPHORUS 2.8 mg/dL (2.6-4.7); TSH (W/Ref FT4) 0.83 uIU/mL (0.36-3.74)
[2025-01-16 10:34] LABS: Vitamin D 25 Total 26 ng/mL (30-100)
[2025-01-16 18:51] LABS: Parathyroid Hormone,Intact 121 pg/mL (19-88)
== END 2025-01-16 01:29 | disposition home or self-care (01) ==
LOC: LBO 01:28
PROVIDERS: PCP Family Medicine; Visit Provider Internal Medicine
DX: E04.2 Nontoxic multinodular goiter (principal); E55.9 Vitamin D deficiency, unspecified; E21.3 Hyperparathyroidism, unspecified
CPT/HCPCS: 36415; 82306; 82040; 82310; 82565; 83970; 84100; 84443

== ENCOUNTER 2025-01-16 19:30 | Outpatient (REF) | payer MEDICARE, MEDICAID, SELFPAY ==
[2025-01-17 10:11] LABS: Calcium Urine 19.7 mg/dL (See Note); Calcium Urine 24 hr 374 mg/24hr (100-300); Timed Urine Volume 1900 mL
== END 2025-01-16 19:31 | disposition home or self-care (01) ==
LOC: LBN 19:30
PROVIDERS: PCP Family Medicine; Visit Provider Internal Medicine
DX: E21.3 Hyperparathyroidism, unspecified (principal); I10 Essential (primary) hypertension
CPT/HCPCS: 81050; 82340

== ENCOUNTER 2025-05-15 01:25 | Outpatient (CLI) | payer MEDICARE, MEDICAID, SELFPAY ==
--- NOTE | 2025-05-15 09:13 | DI.MAMMO_ITS ---
Exam(s) MAMMO SCREENING EXAM: MAMMO SCREENING CLINICAL HISTORY: SCREENING, Z12.31 TECHNIQUE: Bilateral full field digital CC and MLO mammographic images were obtained with 3D tomosynthesis and utilizing computer aided detection (CAD). COMPARISON: Comparison is made with prior examinations. FINDINGS: Masses/Architectural Distortion: No suspicious masses or areas of architectural distortion are present. The biopsy clip in the left breast is stable in position. Microcalcifications: No suspicious pleomorphic-type are seen. Skin Thickening/Nipple Retraction: None. IMPRESSION: 1. No significant interval change with no specific features of malignancy noted. 2. Unless there is more urgent need, screening mammography is recommended, as per [place] [employer] guidelines. BI-RADS Category 1 - Negative Breast Density - Category B - There are scattered areas of fibroglandular density. Breast density Category C or D implies that the patient has dense breast tissue. Dense breast tissue can make it harder to find cancer on a mammogram. Dense breast tissue is also associated with an increased risk of breast cancer. This information about the result of the mammogram report was provided to the patient to raise their awareness. Use this report when you speak with the patient about their risks for breast cancer, which includes their family history. At that time, you may recommend additional screening tests (Ultrasound or MRI) as these tests may add significant information. A negative radiographic report should not delay biopsy if a dominant or clinically suspicious mass is present. Up to ten percent of cancers are not identified on mammography. A negative report may reinforce clinical impression. Adenosis and dense breasts may obscure an underlying neoplasm. False positive reports average 6 to 10%. Patient will receive a letter notifying them of these results.
== END 2025-05-15 01:45 ==
PROVIDERS: PCP Family Medicine; Visit Provider Family Medicine
DX: Z12.31 Encounter for screening mammogram for malignant neoplasm of breast (principal)
CPT/HCPCS: 77063; 77067

== ENCOUNTER 2025-06-25 09:47 | Emergency (ER) | payer MEDICARE, MEDICAID, SELFPAY ==
[2025-06-25] VITALS (15 sets, daily range): BP systolic 96–137; BP diastolic 54–117; PULSE 75–86; RESP 11–19; TEMP 36.8; O2SAT 92–98
--- NOTE | 2025-06-25 09:45 | RT.EKG_ITS ---
APPROVED REPORT Exam: Resting ECG Reason for Exam: Possible Stroke Patient Location: E HR:75 bpm ECG Measurements Heart Rate 75 AXIS [place] 153 P 70 QRSd 87 QRS 21 QT 384 T 78 QTc 429 Conclusion Sinus rhythm...normal P axis, V-rate 60- 99 Consider anterior infarct...Q >30mS in V2-V5 No Occlusion PR
--- NOTE | 2025-06-25 09:45 | DI.CT_ITS ---
Exam(s) CT BRAIN NECK CTA EXAM: CT BRAIN NECK CTA CLINICAL HISTORY: Left-sided weakness. TECHNIQUE: Imaging Protocol: Axial CT angiography was performed with multi- slice acquisition and multi-planar and/or 3D reconstructions. CONTRAST MATERIAL: Intravenous: Omnipaque 350 Contrast volume:70 mL COMPARISON: x FINDINGS: CTA Neck W: Aortic arch anatomy: The aortic arch anatomy is conventional and there is no significant stenosis at the origin of the great vessels off of the aortic arch. No intimal flap evident. Anterior circulation: Both common carotid arteries ascend with normal luminal diameters. At the level the carotid bulbs and proximal internal carotid arteries there is mild partially calcified plaque at the level of the carotid bulbs and proximal internal carotid arteries but without significant stenosis. Amount of stenosis is estimated at approximately 10 percent bilaterally. The internal carotid arteries in the upper neck both appear unremarkable as do the internal carotid arteries in the skull base-carotid canals. Posterior circulation: Both vertebral arteries originate in conventional fashion off of the subclavian arteries and there is no obvious stenosis at the origin of the vertebral arteries. Both vertebral arteries exhibit normal and approximately equal luminal diameters within the foramen transversarium. No evidence of significant stenosis, thrombosis, nor dissection of the vertebral arteries in the neck. Both vertebral arteries contribute to the formation of the basilar artery at the skull base. CTA Brain W: Anterior circulation: There is moderate amount of calcified and noncalcified plaque with in the intra cavernous internal carotid arteries bilaterally. The supraclinoid aspects of the ICAs are patent. Both A1 segments are patent as are the anterior cerebral arteries and there is no evidence of aneurysm at the level of the anterior communicating artery. Right middle cerebral artery appears patent without significant stenosis nor dissection. Left middle cerebral artery is patent in the M1 segment. There are multiple branches distal to the left P1 segment probably developmental. No aneurysms. Posterior circulation: Basilar artery ascends without significant stenosis. Distally gives off superior cerebellar arteries which are patent bilaterally. Above this level the basilar artery terminates as patent posterior cerebral arteries There is no evidence of aneurysm at the tip of the basilar artery nor elsewhere in the [id number]. CT BRAIN: There is no evidence of intracranial hemorrhage, mass effect, or shift of midline structures. There are no extra-axial fluid collections. Ventricles are not enlarged or shifted. There are no ring enhancing lesions in the brain and no abnormal meningeal enhancement. OTHER: Abnormal appearing thyroid gland with multiple nodules. IMPRESSION: 1. Patent carotid arteries in the neck. There is mild plaque at the level the carotid bulbs and proximal internal carotid arteries bilaterally but no hemodynamically significant stenosis at this level.. 2. Patent vertebral arteries. Both vertebral arteries contribute to the formation of the basilar artery at the skull base. 3. Patent intracranial arteries. No significant stenosis nor thrombosis nor dissection of intracranial arteries. No aneurysms nor obvious vascular malformations. 4. No acute intracranial findings. 5. Incidentally noted are nodules in the thyroid gland. This can be further studied with outpatient thyroid ultrasound. Report called by myself to ER 06/25/2025 at 11:04 a.m. RADIATION DOSE DELIVERED: 2,109.05mGy.cm Total DLP DATA REPOSITORY: All CT scans at this facility are submitted to the National Radiology Data Registry (NRDR) Dose Index Registry (DIR) with the [employer] (A[employer]). RADIATION OPTIMIZATION: All CT scans at this facility use at least one of these dose optimization techniques: automated exposure control; mA and/or kV adjustment per patient size (includes targeted exams where dose is matched to clinical indication); or iterative reconstruction.
--- NOTE | 2025-06-25 09:58 | DI.RAD_ITS ---
Exam(s) XR PORTABLE CHEST AP EXAM: XR PORTABLE CHEST AP CLINICAL HISTORY: Weakness. TECHNIQUE: 2D digital imaging was performed. COMPARISON: No exams were available for comparison FINDINGS: Single AP portable view. Heart size is upper normal. The mediastinum is not widened. There are no infiltrates nor pleural effusions. No pulmonary edema. No pneumothorax. However, in the retrocardiac left lower lobe there is a hyperdense vessel and possible cutoff sign. IMPRESSION: Possible vessel cutoff sign in the left lower lobe. Correlation with any clinical symptomatology of pulmonary embolus recommended. If clinically indicated CT a study can be performed to rule out pulmonary embolus. DATA REPOSITORY: RADIATION DOSE DELIVERED:
--- NOTE | 2025-06-25 09:59 | W.ED.GENAD ---
Discharge Plan Disposition Patient Disposition: Against Medical Advice Discharge Details Clinical Impression: Difficulty speaking, Hypercalcemia, Elevated serum creatinine, Erythrocytosis Primary Care Provider: Kritsen Robles V ED Provider: Eugene Gudino Home Meds and New Rx's Prescriptions: Continued ibuprofen 800 MG tablet 800 mg PO PRN aspirin [Aspir-81] 81 MG tablet,delayed release (DR/EC) 81 mg PO DAILY nitroglycerin 0.4 MG tablet, sublingual 0.4 mg Sublingual PRN rosuvastatin 10 mg tablet 10 mg PO DAILY cholecalciferol (vitamin D3) 50 mcg (2,000 unit) capsule 50 mcg PO DAILY gabapentin 100 mg capsule 200 mg PO BID metoprolol succinate 25 mg tablet extended release 24 hr 50 mg PO DAILY triamcinolone acetonide 0.1 % cream 1 applic topical BID Discharge Instructions Additional Instructions: You are seen in the emergency department for your weakness and difficulty speaking. Your MRI showed no sign of a stroke. As we discussed, you have some incidental findings in the back of your throat and nose which is likely a cyst. He also has signs of an old fracture below your left eye. There is a risk of leaving as we have not definitively proven that you did not have a mini stroke this is called a TIA. There is certainly a risk of permanent disability or . Your calcium level was high. Your creatinine level which measures your kidney function was also high. You have a higher than normal red blood cell count. Please return to the emergency department if you develop any weakness nausea or vomiting that does not stop or any dizziness. We are happy to see you at any time. Stand Alone Forms: Portal Information Discharge Data Discharge Date/Time-TO BE ENTERED AT DEPARTURE: 06/25/25 14:50 HPI General Date/Time Provider Initiated Documentation: 06/25/25 09:57. HPI Narrative: MDM This is an elderly appearing normothermic and not tachycardic female with difficulty speaking left-sided headache concerning for possible CVA in the setting of prior CVA and risk factors of tobacco use and hypertension for which patient will undergo CT angiogram of her head and neck. No nuchal rigidity to suggest meningitis medication for lumbar puncture. Given no significant deficits at the moment and duration of time since symptoms began patient is not a candidate for TNK. No tonic-clonic activity to suggest seizures and no indication for EEG. No chest pain to suggest ACS however will obtain ECG and troponin. Doubt aortic dissection in the absence of chest pain. No shortness of breath to suggest PE. No dysuria or frequency to suggest UTI. No recent chiropractic manipulation to suggest increased risk for cervical arterial dissection. No generator exposure to suggest increased risk for carbon monoxide toxicity. Headache was not sudden onset make my suspicion lower for subarachnoid hemorrhage. Patient is not on any oral contraception so doubt cerebral venous sinus thrombosis. Patient could be at risk for posterior circulation CVA given dizziness symptoms. She would benefit from an MRI. Will obtain troponin testing to assess for any ischemic and monitor on telemetry. 11:[address] angiogram of her head and neck showed no acute intracranial findings. She did have plaques in her carotids. She had a normal magnesium level. Patient had 2 reassuring troponins. She had MARNI. No CKD. New hypercalcemia. Intervals within normal limits on ECG which showed narrow complex normal sinus rhythm. No acute electrolyte abnormalities.Her chest x-ray was concerning for possible vessel cutoff sign in lower lobe. She was not feeling short of breath so I did not feel that PE was likely. 1:48 PM Urinalysis nitrite negative with no leuk esterase nor hematuria?test not consistent with UTI. MRI brain with no acute ischemic findings. Prior evidence of left orbital blowout fracture incidental nasopharyngeal finding which may be a mucoid retention cyst. I inquired about patient's hyperkalemia. She reports that this is common if she follows with endocrinology at [facility]. I ordered her 500 cc of crystalloid. 4:22 PM Patient was going to be evaluated by teleneuro. There is a delay in getting connected to teleneuro this patient was not a lytic candidate. There is stenosis around site of patient and her partner were concerned about driving. Patient felt improved. I advised her that there is a chance that she could be having a TIA. I advised her that my recommendation was for hospitalization. Patient declined as she felt improved. She requested discharge. 1. I explained the current situation and condition to the patient. 2. I explained the recommended treatment for this condition ?hospitalization following neurological consult for tele and repeat neuro assessments. 3. I explained the risk of not having the recommended treatment ?permanent disability irreversible symptoms and 4. The patient understands this information has no questions, and repeated back this information. 5. The patient states that they need to leave and will return if her symptoms worsen 6. Mental status is lucid and the patient has decision-making capacity. 7. Patient is withdrawing consent for care HPI This is a patient with a history of a prior stroke presenting with dizziness, eye ache, headache, and confusion. The patient reports experiencing dizziness, eye ache, headache, and confusion, which began last night (06/24/2025). The confusion has escalated to the point where she is unable to articulate her words correctly. She sought emergency care at [place] on 06/22/2025, where she was informed that her condition was stable. However, she did not experience these symptoms at that time. She reports weakness primarily on her left side, noting difficulty moving and needing assistance to sit down. The patient is currently on antihypertensive medication but is not taking any anticoagulants. She also reports chest pain and arm discomfort, which were particularly severe on 06/22/2025. Additionally, she has been experiencing frequent burping. She reports no fever or dysuria but mentions feeling unusually warm, with episodes of alternating cold and hot sensations. Exam General: Well-appearing in no acute distress speaking in complete sentences. Head: Normocephalic, atraumatic. Eye:[Pupils equal, round reactive to light.] Extraocular eye movements intact. No conjunctival injection. No scleral icterus. Ear, nose, mouth, throat: Grossly normal inspection. Normal voice, handling secretions normally. Neck: Trachea midline. Cardiovascular: Well-perfused distal extremities. Regular rate and rhythm. Respiratory: Nonlabored respiration. Clear lungs bilaterally. Gastrointestinal: Nondistended abdomen. Musculoskeletal: No edema. Moving all 4 extremities spontaneously. Skin: Normal for age and race, grossly normal temperature and turgor. No acute rash. Neurologic: Alert and appropriate, no apparent acute deficits. GCS 15. 5 out of 5 bilateral upper and lower extremity strength. No dysmetria. No dysdiadochokinesia. No pronator drift. Cranial nerves II through XII intact grossly. Related Data Home Medications ?Medication ?Instructions ?Recorded ?Confirmed aspirin 81 mg tablet,delayed 81 mg PO DAILY 10/01/13 06/25/25 release (Aspir-) ibuprofen 800 mg tablet 800 mg PO PRN 10/01/13 06/25/25 nitroglycerin 0.4 mg sublingual 0.4 mg sublingual PRN 10/01/13 06/25/25 tablet cholecalciferol (vitamin D3) 50 50 mcg PO DAILY 11/05/21 06/25/25 mcg (2,000 unit) capsule gabapentin 100 mg capsule 200 mg PO BID 11/05/21 06/25/25 metoprolol succinate 25 mg 50 mg PO DAILY 11/05/21 06/25/25 tablet,extended release 24 hr rosuvastatin 10 mg tablet 10 mg PO DAILY 11/05/21 06/25/25 triamcinolone acetonide 0.1 % 1 applic topical BID 05/25/22 06/25/25 topical cream Allergies Allergy/AdvReac Type Severity Reaction Status Date / Time amlodipine Allergy Unknown Other (See Verified 06/25/25 09:58 Comment) carisoprodol (From Soma) Allergy Unknown Other (See Verified 06/25/25 09:58 Comment) losartan Allergy Unknown Other (See Verified 06/25/25 09:58 Comment) methylprednisolone (From Allergy Unknown Unknown Verified 06/25/25 09:58 Depo-Medrol) simvastatin Allergy Unknown Other (See Verified 06/25/25 09:58 Comment) hydromorphone AdvReac Intermediate vomiting Verified 06/25/25 09:58 and spinning bupropion (From Wellbutrin) AdvReac Mild just Verified 06/25/25 09:58 didn't feel good codeine AdvReac severe Verified 06/25/25 09:58 headache General Stated Complaint: CVA/TIA BRIDGET: 3 PFSH All Active Problems (Updated 06/25/25 @ 14:43 by Eugene Gudino MD) Erythrocytosis (Acute) Elevated serum creatinine (Acute) Hypercalcemia (Acute) Difficulty speaking (Acute) Tubular adenoma (Acute ~11/22/22) largest polyp 10mm recommend 3 yrs Thyroid nodule (Acute) Screening for colon cancer (Acute) Eczema (Acute) Skin lesion (Acute) Breast Symptom (Acute) CAD (coronary artery disease) (Chronic) Chest pain of uncertain etiology (Acute) Abnormal mammogram of right breast (Acute) Breast lesion (Acute) Family history of breast cancer (Acute 09/16/17) Mother Maternal aunt Medical History Depression Squamous papilloma of uvula Smoker History of abnormal cervical Pap smear Neck stiffness Myalgia Bilateral carpal tunnel syndrome Seborrheic keratosis Iliotibial band syndrome of right side Radicular syndrome of lower limbs Family history of premature coronary heart disease Left shoulder pain Accidental fall Hypercalcemia Warthin's tumor Hyperparathyroidism History of colonic polyps Elevated lipids (09/16/17) Hypertension (09/16/17) Surgical History History of colonoscopy with polypectomy (~11/22/22) Acquired absence of both cervix and uterus (09/16/17) TA Hyst for Bleeding and Fibroids - Dr Huerta 2006 Abdominal hysterectomy 2006 Dr Huerta - menorrhagia and fibroids Cervical Conization/LEEP Family History Son No problems noted. Mother Diabetes Breast cancer Father Diabetes Maternal Aunt Breast cancer maternal Social History Smoking/Tobacco Use Status: Current every day Tobacco Type: cigarettes Smoking packs per day: 1.5 Smoking cigarettes per day: 30.0 Smoking risk assessment performed?: Yes Alcohol Intake: former Drug use: Never Substance use type: does not use Do you feel safe at home: Yes Do you feel safe in your relationship?: Yes Female Reproductive History Menstrual Menopause type: surgical History History 4 Para 4 Hx # Term Pregnancies Multiple births Hx # Pregnancies Ectopic pregnancies AB induced Hx Number of Living Children AB spontaneous
[2025-06-25] MEDS: Omnipaque 350 MG/ML 100 ML BTL IJ (10:21)
[2025-06-25] MEDS: Normal Saline - Diluent 50 ML VIAL IJ (10:22)
[2025-06-25 10:32] LABS: Abs Immature Grans 0.05 10^3/uL (0.0-0.06); HCT 48.5 % (36.0-46.0); HGB 16.9 g/dL (11.2-15.7); Immature Grans % 0.5 %; MCH 29.5 pg (27.0-33.0); MCHC 34.8 % (32.0-36.0); MCV 85 fL (80-95); MPV 9.2 fL (8.0-11.0); Platelet Count 315 10^3/uL (130-400); RBC 5.72 10^6/uL (3.93-5.22); RDW 12.2 % (11.7-14.6); RDW-SD 37.8 fL; WBC 10.58 10^3/uL (4.4-10.8)
[2025-06-25 10:52] LABS: Magnesium 2.1 mg/dL (1.6-2.6)
[2025-06-25 10:53] LABS: Troponin I 6 ng/L (<35)
[2025-06-25 11:14] LABS: Anion Gap 6.2 mmol/L (3-11); BUN 26 mg/dL (9-23); CO2 26.8 mmol/L (20.0-31.0); Calcium 11.7 mg/dL (8.3-10.6); Chloride 102 mmol/L (98-107); Glucose 146 mg/dL (74-106); Potassium 3.8 mmol/L (3.5-5.1); Sodium 135 mmol/L (136-145)
--- NOTE | 2025-06-25 11:15 | DI.MRI_ITS ---
Exam(s) MR BRAIN WO EXAM: MR BRAIN WO CLINICAL HISTORY: Left-sided weakness TECHNIQUE: Multiplanar multisequence MRI of the brain was performed. COMPARISON: CT CT BRAIN NECK CTA from 06/25/2025 FINDINGS: CEREBRAL PARENCHYMA: There is no evidence of intracranial hemorrhage, mass effect, or shift of midline structures. There are no extra-axial fluid collections. Ventricles are not enlarged or shifted. No evidence of cerebellar tonsillar ectopia. There is no significant focal signal abnormality in the cerebellar hemispheres nor within the drake, midbrain, and thalami. Small focus of FLAIR bright signal abnormality is noted in the posterior parietal region not associated with hemorrhage, surrounding edema, nor restricted diffusion. This a nonspecific finding. There are no other FLAIR bright white matter foci. There is no significant focal signal abnormality evident on diffusion imaging to suggest acute ischemic event. SWI reveals no evidence of microhemorrhages in the brain. PITUITARY GLAND: No mass nor parasellar abnormality. No obvious abnormality in the cavernous sinuses. FLOW VOIDS: The expected flow void are noted. No evidence of obvious aneurysm nor obvious vascular malformation. PARANASAL SINUSES: There is a finding in the floor of the left orbit consistent with a an element of caudal herniation of intraorbital fat through what is probably a pre-existing orbital floor blowout fracture. There is no evidence of fluid level in the left maxillary sinus. No significant mucosal thickening nor fluid levels in the other paranasal sinuses nor within the mastoid air cells. There is trace fluid in the right mastoid air cells. ORBITS: Nonacute appearing left orbital floor blowout fracture as described above. No evidence of obvious dysconjugate gaze. OTHER: Incidentally noted is hypertrophied tissue in the nasopharynx and a slightly right of center which measures 7 mm craniocaudal by 7 mm AP by 6 mm wide and is probably a retention cyst as opposed to a Thornwaldt cyst given that it is right paracentral. IMPRESSION: No significant acute intracranial findings on this noninfused MRI scan of the brain. Evidence of previous left orbital blowout fracture with caudal herniation of orbital fat into the upper left maxillary sinus. There is no fluid level in the maxillary sinus. Incidental nasopharyngeal finding as above which is probably a mucous retention cyst given that it is right of center. Called by myself to ER physician 06/25/2025 at 12:55 p.m. DATA REPOSITORY:
[2025-06-25 11:44] LABS: Troponin I 6 ng/L (<35)
[2025-06-25 12:18] LABS: Glucose Negative (Negative)
[2025-06-25 12:26] LABS: C & S Indicated? No; RBC Negative HPF (0-2); WBC 0-2 HPF (0-5)
[2025-06-25] MEDS: Normal Saline 500 ML IV (13:24)
== END 2025-06-25 14:50 | disposition left against medical advice (07) ==
PROVIDERS: Emergency Provider Emergency Medicine; PCP Family Medicine
DX: R47.9 Unspecified speech disturbances (principal); E83.52 Hypercalcemia; R79.89 Other specified abnormal findings of blood chemistry; D75.1 Secondary polycythemia; Z53.20 Procedure and treatment not carried out because of patient's decision for unspecified reasons
CPT/HCPCS: 36415; 36416; 70496; 70498; 80048; 82962; 93005; 96360; 99285; 70551; 71045; 81003; 81015; 83735; 84484; 85025; 93010; 99284; J3490

== ENCOUNTER 2025-06-28 02:26 | Outpatient (CLI) | payer MEDICARE, MEDICAID, SELFPAY ==
[2025-07-01 10:27] LABS: Lyme Ab w Rflx to Lyme Confirm Negative (Negative)
[2025-07-01 15:10] LABS: B. miyamotoi PCR Negative (Negative); Babesia divergens/MO-1 Negative (Negative); Ehrlichia muris eauclairensis Negative (Negative)
== END 2025-06-28 02:27 | disposition home or self-care (01) ==
LOC: LBO 02:27
PROVIDERS: PCP Family Medicine; Visit Provider Family Medicine
DX: M79.10 Myalgia, unspecified site (principal)
CPT/HCPCS: 36415; 87798; 86618

== ENCOUNTER 2025-07-02 14:27 | Outpatient (CLI) | payer MEDICARE, MEDICAID, SELFPAY ==
[2025-07-02 15:07] LABS: Hemoglobin A1C 5.8 % (<5.7)
[2025-07-02 15:18] LABS: TSH (W/Ref FT4) 0.56 uIU/mL (0.55-4.78)
[2025-07-02 15:30] LABS: Anion Gap 4.9 mmol/L (3-11); BUN 16 mg/dL (9-23); CO2 29.1 mmol/L (20.0-31.0); Calcium 11.1 mg/dL (8.3-10.6); Chloride 107 mmol/L (98-107); Glucose 144 mg/dL (74-106); Potassium 3.7 mmol/L (3.5-5.1); Sodium 141 mmol/L (136-145)
== END 2025-07-02 14:28 | disposition home or self-care (01) ==
LOC: LBO 14:27
PROVIDERS: PCP Family Medicine; Visit Provider Family Medicine
DX: R73.03 Prediabetes (principal); E83.52 Hypercalcemia
CPT/HCPCS: 36415; 80048; 82330; 83036; 83970; 84100; 84443

== ENCOUNTER 2025-07-05 09:02 | Outpatient (CLI) | payer MEDICARE, MEDICAID, SELFPAY | END 2025-07-05 09:03 | disposition home or self-care (01) | PROVIDERS: PCP Family Medicine; Visit Provider Family Medicine | DX: R47.9 Unspecified speech disturbances (principal) | CPT/HCPCS: 93246 ==